=== PATIENT | male | born 1955 | race Two or more races ===

== ENCOUNTER 2018-02-14 03:23 | Inpatient (IN) | payer MEDICAID ==
[~2018-02-14] VITALS: Ht 167.6 cm; Wt 56.7 kg
[~2018-02-14 03:23] MED LIST: ACET-2605 GT; ACET-868 GT; ALBU2.5V38 IH; BACL10TA GT; BISA10SU8 RC; CALC-261 GT; CLON0.1T GT; CRAN3875 GT; DOCU50LI GT; FAMO-131 GT; FERR220S17 GT; FOLI1TAB16 PO; HEPA500014 SUBCUT; IPRA0.2S9 IH; LACT-209 GT; LEVE500T9 GT; MAGN400O21 GT; MULT9LIQ6 GT; NA P133E RC
--- NOTE | 2018-02-14 03:26 | NUR ---
PT TO ER BED 12. BIBRA FROM [facility] FOR HIGH HR AND FEVER X 3 HOURS. SEE VITAL SIGN FLOW SHEET. PT PLACED IN GOWN AND ON SOA ENGINEER. VSS/RESP EVEN UNLABORED/NAD NOTED/SKIN HOT AND DRY/PT IS NONVERBAL. MD AT BEDSIDE FOR EVAL. RT AT BEDSIDE. PT IS ON A TRACH/VENT. VENT SETTINGS: RATE 16 TV 500 FIO2 40%
[2018-02-14] MEDS ORDERED: IV NS 0.9% 1,000 ML BAG IV ONE (03:30)
[2018-02-14] MEDS ORDERED: ACETAMINOPHEN ES 500 MG TABLET GT ONE (03:30)
[2018-02-14 03:33] VITALS: BP 104/59
--- NOTE | 2018-02-14 03:36 | NUR ---
PT RECEIVED FROM FIRE VIA AMBU BAG AND PLACED ON VENT VIA TRACH PORTEX 7 PER PREVIOUS SETTINGS FROM FACILITY. AC 16 500 40% +0. AMBU BAG AT BEDSIDE ALARMS SET AND AUDIBLE. DISCONNECT ALARMS CHECKED.VENT PLUGGED INTO RED OUTLET. PT HAS INCREASED HR AT THIS TIME Addendum: 02/14/18 at 0339 by CHRIS SHEARER RT Amended: Links added.
--- NOTE | 2018-02-14 03:40 | NUR ---
18G IV X 1 ATTEMPT TO R HAND USING ASEPTIC TECH, BLOOD CULT X 2 AND BLOOD HANDED OVER TO THE LAB AT THE BEDSIDE. IV FLUSHES EASILY WITH NS, NO S/S INFILTRATION.
[2018-02-14] MEDS ORDERED: ASPI-1169 GT (03:41)
[2018-02-14] MEDS ORDERED: MAG30ORA GT (03:41)
[2018-02-14] MEDS ORDERED: SACC250C GT (03:41)
[2018-02-14] MEDS ORDERED: METO25TA6 GT (03:41)
--- NOTE | 2018-02-14 03:45 | NUR ---
EMT AT BEDSIDE FOR EKG.
--- NOTE | 2018-02-14 03:47 | NUR ---
RT AT BEDSIDE FOR SUCTION.
--- NOTE | 2018-02-14 03:55 | NUR ---
XRAY AT BEDSIDE.
--- NOTE | 2018-02-14 04:00 | NUR ---
16FR F/C INSERTED USING SITE SUPERVISOR, NOTED 100 ML URINE OUTPUT. URINE SPECIMEN OBTAINED AND SENT TO THE LAB.
[2018-02-14] MEDS ORDERED: ACETAMINOPHEN 650 MG/SUPP.RECT RC ONE ×2 (04:06→04:30)
[2018-02-14 04:15] LABS: EOSINOPHILS % (AUTO) 13.7 % (0.0-6.0); HEMATOCRIT 41 % (39-51); HEMOGLOBIN 13.8 g/dL (13.5-17.5); LYMPHOCYTES # (AUTO) 0.5 /CMM (0.8-4.8); LYMPHOCYTES % (AUTO) 3.7 % (20.0-44.0); MEAN CORPUSCULAR HGB CONC 34 g/dl (31.0-36.0); MEAN CORPUSCULAR VOLUME 98 fL (80-96); MONOCYTES # (AUTO) 0.1 /CMM (0.1-1.30); MONOCYTES % (AUTO) 0.5 % (2.0-12.0); NEUTROPHILS # (AUTO) 11.5 /CMM (1.8-8.9); NEUTROPHILS % (AUTO) 82.1 % (43.0-81.0); PLATELET COUNT (AUTO) 187 /CMM (150-450); RDW COEFFICIENT OF VARIATION 14.2 (11.5-15.0); RED BLOOD CELL COUNT(AUTO) 4.15 MIL/uL (4.5-6.0); WHITE BLOOD COUNT (AUTO) 13.9 K/uL (4.3-11.0)
[2018-02-14 04:26] LABS: CALCIUM, SERUM 8.4 mg/dL (8.5-10.1); CARBON DIOXIDE 29 mmol/L (21-32); CHLORIDE 104 mmol/L (98-107); CREATININE 0.8 mg/dL (0.6-1.3); GLUCOSE 92 mg/dL (74-106); POTASSIUM 3.7 mmol/L (3.5-5.1); SODIUM SERUM 142 mmol/L (136-145); UREA NITROGEN, BLOOD 23 mg/dL (7-18)
[2018-02-14 04:31] LABS: ALANINE AMINOTRANSFERASE 57 U/L (12-78); ALBUMIN 2.9 g/dL (3.4-5.0); ALKALINE PHOSPHATASE 174 U/L (46-116); ASPARTATE AMINOTRANSFERASE 43 U/L (15-37); BILIRUBIN,DIRECT 0.2 mg/dL (0.0-0.2); BILIRUBIN,TOTAL 0.6 mg/dL (0.2-1.0); TOTAL PROTEIN, SERUM 8.3 g/dL (6.4-8.2)
[2018-02-14 04:38] LABS: TROPONIN I < 0.017 ng/mL (0.00-0.056)
[2018-02-14 04:45] LABS: INR 1.1 (0.87-1.13)
[2018-02-14 04:50] LABS: APPEARANCE,URINE CLEAR (CLEAR); BILIRUBIN,URINE NEGATIVE (NEGATIVE); BLOOD, URINE 1+ Ery/uL (NEGATIVE); COLOR,URINE YELLOW (YELLOW); KETONES,URINE NEGATIVE (NEGATIVE); LEUKOCYTE ESTERASE ,URINE TRACE (NEGATIVE); NITRITE, URINE NEGATIVE (NEGATIVE); PROTEIN,URINE TRACE mg/dl (NEGATIVE); UGLUCOSE NEGATIVE (NEGATIVE); UROBILINOGEN,URINE 0.2 EU/dL (0.2)
[2018-02-14 04:54] LABS: PH,URINE >8.5 (5.0-8.0)
[2018-02-14 05:06] LABS: BACTERIA,URINE Rare /HPF (None Seen); SQUAMOUS EPITHELIAL CELL,UR Rare /HPF (None Seen)
--- NOTE | 2018-02-14 05:10 | NUR ---
REPORT CALLED TO TOMMY SHELDON IN [place] FOR JOON.
[2018-02-14] MEDS ORDERED: LEVOFLOXACIN 750 MG /D5W 150ML 750 MG in PREMIX 1 EA IV STA (05:11)
[2018-02-14] MEDS ORDERED: AZTREONAM 1 G in IV NS 0.9% 100 ML IV STA (05:13)
[2018-02-14] MEDS ORDERED: PIPERACILLIN /TAZOBACTAM 3.375 G in IV D5W 50 ML IV STA (05:19)
[2018-02-14] MEDS ORDERED: PIPERACILLIN /TAZOBACTAM 3.375 G VIAL IV ONE (05:19)
--- NOTE | 2018-02-14 05:25 | NUR ---
RT CALLED FOR TRANSPORT.
[2018-02-14] MEDS ORDERED: AZTREONAM 1 G VIAL IM SCH (05:30)
[2018-02-14] MEDS ORDERED: Z GUARD REMEDY 2 OZ OINT TP PRN (05:30)
[2018-02-14] MEDS ORDERED: MAGNESIUM HYDROXIDE 30 ML UDC GT PRN (05:30)
[2018-02-14] MEDS ORDERED: ONDANSETRON HCL/PF 4 MG/2 ML VIAL IVP PRN (05:30)
[2018-02-14] MEDS ORDERED: MORPHINE SULFATE INJ 2 MG/ML DISP.SYRIN IV PRN (05:30)
[2018-02-14] MEDS ORDERED: LORAZEPAM 1 MG TABLET GT PRN (05:30)
[2018-02-14] MEDS ORDERED: HYDROCODONE/APAP 5/325MG 1 EACH TABLET GT PRN (05:30)
[2018-02-14] MEDS ORDERED: MAG HYDROX/AL HYDROX/SIMETH 30 ML UDC GT PRN (05:30)
--- NOTE | 2018-02-14 05:30 | NUR ---
PT TRANSPORTED TO TELE 119 VIA STRETCHER ON ROTARY SAW OPERATOR WITH RN AND RT PER ACLS PROTOCOL. VSS.
[2018-02-14 05:32] VITALS: BP 119/78
[2018-02-14] MEDS: PIPERACILLIN /TAZOBACTAM 3.375 G in IV D5W 50 ML IV SCH ×3 (05:47→17:18)
[2018-02-14] MEDS ORDERED: VANCOMYCIN 1 GM in IV NS 0.9% 250 ML IV ONE (06:00)
[2018-02-14] MEDS: IV NS 0.9% 1,000 ML IV PRN (06:32)
[2018-02-14] MEDS ORDERED: VANCOMYCIN 1 GM VIAL ONE (06:34)
--- NOTE | 2018-02-14 07:50 | NUR ---
RN NOTE RECEIVED PATIENT ASLEEP IN BED, OBTUNDED TRACH INTACT WITH VENTILATOR WITH APPROPRIATE SETTINGS WELL TOLERATED WITH NO DISTRESS AND SATURATING WELL. ON CARDIAC MONITORING OF SINUS TACHY HR OF 105. HUNT CATH INTACT AND PATENT. GT SITE INTACT AND PATENT. RIGHT HAND IV SITE INTACT AND PATENT. BED IN LOW AND LOCKED POSITION. PLACED CALL LIGHT WITHIN REACH. WILL MONITOR CLOSELY.
[2018-02-14 08:00] VITALS: BP 110/70
[2018-02-14] MEDS: ENOXAPARIN SODIUM 40 MG/0.4 ML DISP.SYRIN SQ SCH (09:00)
[2018-02-14] MEDS ORDERED: FEE PK DOSING 1 MIN EA MC ONE (09:18)
[2018-02-14] MEDS: FIBERSOURCE HN 1,000 ML BOTTLE GT PRN (11:15)
[2018-02-14 12:00] VITALS: BP 133/68
[2018-02-14] MEDS: VANCOMYCIN 0.75 GM in IV D5W 250 ML IV SCH ×2 (13:11→23:31)
--- NOTE | 2018-02-14 14:44 | NUR ---
RT RECD PT ON VENT ALARMS ON AND AUDIBLE VENT PLUGGED IN RED OUTLET. AMBU BAG AT BEDSIDE TRACH INTACT AND SECURED. SX THICK YELLOW LARGE SECRETIONS
[2018-02-14 16:00] VITALS: BP 111/63
[2018-02-14] MEDS: LEVOFLOXACIN 500 MG /D5W 100ML 500 MG in PREMIX 1 EA IV SCH (18:09)
--- NOTE | 2018-02-14 19:14 | NUR ---
RN NOTE PATIENT REMAINED STABLE ASLEEP IN BED, OBTUNDED AND CONTRACTED. TRACH INTACT WITH VENTILATOR WITH APPROPRIATE SETTINGS WELL TOLERATED WITH NO DISTRESS AND SATURATING WELL. ON CARDIAC MONITORING OF SINUS TACHY HR OF 110 . HUNT CATH INTACT AND PATENT. GT SITE INTACT AND PATENT, WITH FEEDING OF FIBERSOURCE 60ML/HR WELL TOLERATED. RIGHT HAND IV SITE INTACT AND PATENT. BED IN LOW AND LOCKED POSITION. PLACED CALL LIGHT WITHIN REACH. WILL ENDORSE TO NEXT SHIFT TO CONTINUE CONTINUITY OF CARE.
[2018-02-14 20:00] VITALS: BP 117/59
[2018-02-15] VITALS (7 sets, daily range): BP systolic 115–128; BP diastolic 61–73
[2018-02-15] MEDS: PIPERACILLIN /TAZOBACTAM 3.375 G in IV D5W 50 ML IV SCH ×5 (00:41→23:53)
[2018-02-15] MEDS: ACETAMINOPHEN 325 MG TABLET PO PRN (00:41)
[2018-02-15] MEDS: VANCOMYCIN 0.75 GM in IV D5W 250 ML IV SCH ×2 (06:00→17:41)
[2018-02-15 06:29] LABS: BASOPHILS % (AUTO) 0.3 % (0.0-2.0); HEMATOCRIT 36 % (39-51); HEMOGLOBIN 12.1 g/dL (13.5-17.5); LYMPHOCYTES # (AUTO) 1.2 /CMM (0.8-4.8); LYMPHOCYTES % (AUTO) 7.4 % (20.0-44.0); MEAN CORPUSCULAR HGB CONC 34 g/dl (31.0-36.0); MEAN CORPUSCULAR VOLUME 100 fL (80-96); MONOCYTES # (AUTO) 0.9 /CMM (0.1-1.30); MONOCYTES % (AUTO) 5.7 % (2.0-12.0); NEUTROPHILS # (AUTO) 8.5 /CMM (1.8-8.9); NEUTROPHILS % (AUTO) 52.6 % (43.0-81.0); PLATELET COUNT (AUTO) 150 /CMM (150-450); RDW COEFFICIENT OF VARIATION 14.2 (11.5-15.0); RED BLOOD CELL COUNT(AUTO) 3.58 MIL/uL (4.5-6.0); WHITE BLOOD COUNT (AUTO) 16.1 K/uL (4.3-11.0)
[2018-02-15 06:44] LABS: CALCIUM, SERUM 7.8 mg/dL (8.5-10.1); CREATININE 0.8 mg/dL (0.6-1.3); MAGNESIUM 2.1 mg/dL (1.8-2.4); POTASSIUM 3.8 mmol/L (3.5-5.1)
[2018-02-15 07:08] LABS: EOSINOPHILS % (MANUAL) 40 % (0-4); LYMPHOCYTES % (MANUAL) 5 % (16-48); MONOCYTES % (MANUAL) 4 % (0-11.0); NEUTROPHILS % (MANUAL) 51 (42-76)
--- NOTE | 2018-02-15 07:20 | NUR ---
FHA UNDERWRITER OPENING NOTES RECEIVED PATIENT STABLE ASLEEP IN BED, OBTUNDED AND CONTRACTED. TRACH INTACT WITH VENTILATOR WITH APPROPRIATE SETTINGS WELL TOLERATED WITH NO DISTRESS AND SATURATING WELL. ON TELE MONIOTR SR 84. HUNT CATH INTACT AND PATENT. GT SITE INTACT AND PATENT, WITH FEEDING OF FIBERSOURCE 60ML/HR WELL TOLERATED. RIGHT HAND IV SITE INTACT AND PATENT. BED IN LOW AND LOCKED POSITION. SIDERAILS UP. PLACED CALL LIGHT WITHIN REACH. WILL CONTINUE TO MONITOR ACCORDINGLY
--- NOTE | 2018-02-15 08:45 | NUR ---
WOUND CARE CONSULT: PT PRESENTS WITH SKIN CONDITION WITH PROFUSE SHEDDING OF SKIN, ESPECIALLY ON EXTREMITIES. DEFER TO MD/JUVENTINO FOR SKIN CONDITION. PT IS VERY RIGID AND IMMOBILE WITH CURRENT [place] SCORE OF 10. PT ON ALICIA ISOFLEX LOW AIRLOSS BED. ALL SKIN PROTECTION MEASURES IN PLACE AND DISCUSSED WITH NURSING STAFF. WILL SEE PRN. JACINTO IN AGREEMENT WITH PLAN OF CARE. Addendum: 02/15/18 at 0848 by OLEKSANDR LEAVITT WNDNU Amended: Links added.
[2018-02-15] MEDS: ENOXAPARIN SODIUM 40 MG/0.4 ML DISP.SYRIN SQ SCH (09:22)
--- NOTE | 2018-02-15 13:20 | NUR ---
CALLED PENG,PHARMACY REGARDING PATIENT'S VANCO TROUGH OF 20. PER PENG, IT'S OKAY TO GIVE IT.
[2018-02-15] MEDS ORDERED: NEUTRA PHOS 1 POWD.PACKET GT ONE (13:30)
[2018-02-15] MEDS: LACTOBACILLUS RHAMNOSUS GG 1 EACH CAP.SPRINK PO SCH (17:03)
[2018-02-15] MEDS: IV NS 0.9% 1,000 ML IV PRN (18:13)
[2018-02-15] MEDS: FIBERSOURCE HN 1,000 ML BOTTLE GT PRN (18:16)
--- NOTE | 2018-02-15 18:41 | NUR ---
RT SHIFT REPORT: PT 62 Y OLD MALE REMAIN TRACHED PORTEX # 7 ON VENT WITH NOTED SETTINGS. NO RESP DISTRESS. TOLERATING VENT AC SETTINGS, ALARMS ARE SET AND FUNCTIONAL SX'D FOR MOD AMT OF THICK PALE SECRETIONS. B/S RALES/RHONCHI BILATERALLY VENT ALARMS SET AND AUDIBLE. AMBU BAG AT BEDSIDE. VENT PLUGGED INTO RED OUTLET. WILL CONTINUE TO MONITOR. HME CHANGED AND REPORT WILL PASS TO PM SHIFT. Addendum: 02/15/18 at 1842 by DIAMOND BAUTISTA RT Amended: Links added.
[2018-02-15] MEDS: LEVOFLOXACIN 500 MG /D5W 100ML 500 MG in PREMIX 1 EA IV SCH (18:42)
--- NOTE | 2018-02-15 19:15 | NUR ---
RN CLOSING NOTES PATIENT IN BED RESTING. NO SIGNIFICANT CHANGE IN PATIENT'S CONDITION. NO ACUTE DISTRESS, NO SOB. NO S/S OF PAIN OR DISCOMFORT. SUCTIONED PATIENT NEEDED. TURNED AND REPOSITIONED EVERY 2 HRS NEEDED. KEPT PATIENT CLEAN AND DRY. BED IN LOW/LOCKED POSITION, HOB ELEVATED, SIDERAILS UP, CALL LIGHT IN REACH. ENDORSED TO NIGHT RN FOR JOON.
--- NOTE | 2018-02-15 19:31 | NUR ---
CUSTOMER TRAINER OPENING NOTES RECEIVED REPORT FROM MAKAYLA SANDERS. PATIENT OBTUNDED, RESPONSIVE TO TACTILE STIMULI. BREATHING EVEN & UNLABORED W/ TRACH INTACT & TOLERATING VENT SETTINGS AC 16, TV 500, FIO2 40%, PEEP 0. ON TELE W/ SINUS RHYTHM, HR 87. SKIN WARM, DRY & INTACT W/ GENERALIZED RASH NOTED. G-TUBE INTACT & FLUSHING WELL W/ GTF FIBERSOURCE @ 60 ML/HR. LEFT FOREARM IV #22 INTACT & PATENT W/ DRESSING CDI & IVF NS @ 100 ML/HR. SAFETY MEASURES IN PLACE W/ SIDE RAILS UP & BED LOCKED & IN LOWEST POSITION. WILL CONTINUE TO MONITOR. Addendum: 02/15/18 at 1940 by SANDEEP BOJORQUEZ RN CONTACT & DROPLET PRECAUTIONS MAINTAINED.
[2018-02-16] VITALS (7 sets, daily range): BP systolic 106–138; BP diastolic 40–85
--- NOTE | 2018-02-16 05:12 | NUR ---
PT RECEIVED INTUBATED ON VENT. NO RESP DISTRESS. PT TOLERATING VENT SETTINGS. SX'D FOR MOD AMT OF THICK YELLOW SECRETIONS. VENT ALARMS SET AND AUDIBLE. AMBU BAG AT BEDSIDE. WILL CONTINUE TO MONITOR. Addendum: 02/16/18 at 0512 by BRANDIE GALINDO RT Amended: Links added.
[2018-02-16] MEDS: VANCOMYCIN 0.75 GM in IV D5W 250 ML IV SCH ×2 (05:25→18:06)
[2018-02-16 06:41] LABS: CALCIUM, SERUM 7.7 mg/dL (8.5-10.1); PHOSPHORUS 2.7 mg/dL (2.5-4.9); POTASSIUM 3.5 mmol/L (3.5-5.1)
[2018-02-16] MEDS: PIPERACILLIN /TAZOBACTAM 3.375 G in IV D5W 50 ML IV SCH ×4 (06:50→23:37)
--- NOTE | 2018-02-16 07:20 | NUR ---
SURGICAL APPLIANCES SALESPERSON INITIAL NOTE PATIENT RECEIVED OBTUNDED LYING IN BED, OBTUNDED, TRACH TO MECHANICAL VENT ON SETTINGS ORDERED, SR 60 ON TELE, HUNT CATHETER DRAINING YELLOW/ BERTA URINE. g TUBE FLUSHING WELL, FIBERSOURCE AT 60ML/HR. LFA #22G AT 100 ML/HR. SAFETY MAINTAINED AT ALL TIMES, BED IN LOW LOCKED POSITION, CALL LIGHT WITHIN REACH, WILL CONTINUE TO MONITOR FOR ANY JOON.
[2018-02-16] MEDS: LACTOBACILLUS RHAMNOSUS GG 1 EACH CAP.SPRINK PO SCH ×2 (09:07→17:17)
[2018-02-16] MEDS: ENOXAPARIN SODIUM 40 MG/0.4 ML DISP.SYRIN SQ SCH (09:26)
[2018-02-16] MEDS: IV NS 0.9% 1,000 ML IV PRN (11:41)
[2018-02-16] MEDS: ACETAMINOPHEN 325 MG TABLET PO PRN ×2 (11:57→23:37)
[2018-02-16] MEDS: LEVOFLOXACIN 500 MG /D5W 100ML 500 MG in PREMIX 1 EA IV SCH (17:18)
[2018-02-16] MEDS: FIBERSOURCE HN 1,000 ML BOTTLE GT PRN (17:19)
--- NOTE | 2018-02-16 17:53 | NUR ---
RT NOTE PATIENT RECEIVED TRACHED ON MECHANICAL VENTILATION. SUCTION DONE T/O SHIFT. SMALL THICK WHITE/YELLOW SECRETIONS NOTED. TRACH SECURED AND PATENT AT ALL TIMES. CONTINUOUS PULSE OX @ BEDSIDE. VENT PLUGGED INTO RED OUTLET. AMBU BAG @ HOB. ALARMS ON AND AUDIBLE. PATIENT STABLE T/O SHIFT. Addendum: 02/16/18 at 1755 by JAXSON JOVEL RT Amended: Links added.
--- NOTE | 2018-02-16 18:34 | NUR ---
SLIP TENDER CLOSING NOTE PATIENT RESTING COMFORTABLY IN BED, OBTUNDED, TRACH TO MECHANICAL VENT ON SETTINGS ORDERED. GIVEN TYLENOL AT 1157 FOR FEVER 102 NOW CURRENTLY 98.3, AFEBRILE. SAFETY MAINTAINED AT ALL TIMES, WILL ENDORSE TO PM NURSE FOR CONTINUITY OF CARE.
--- NOTE | 2018-02-16 19:30 | NUR ---
SEED LABORATORY TECHNICIAN OPENING NOTES RECEIVED REPORT FROM JOSE SANDERS. PATIENT OBTUNDED, RESPONSIVE TO TACTILE STIMULI. BREATHING EVEN & UNLABORED W/ TRACH INTACT & TOLERATING VENT SETTINGS AC 16, TV 500, FIO2 40%, PEEP 0. NO RESPIRATORY DISTRESS NOTED. ON TELE W/ SINUS RHYTHM, HR 87. SKIN WARM, DRY & INTACT W/ GENERALIZED RASH NOTED. G-TUBE INTACT & FLUSHING WELL W/ GTF FIBERSOURCE @ 60 ML/HR. NO RESIDUAL NOTED @ THIS TIME. LEFT FOREARM IV #22 INTACT & PATENT W/ DRESSING CDI & IVF NS @ 100 ML/HR. NO S/S OF PAIN OR DISCOMFORT @ THIS TIME. SAFETY MEASURES IN PLACE W/ SIDE RAILS UP & BED LOCKED & IN LOWEST POSITION. WILL CONTINUE TO MONITOR.
[2018-02-17] VITALS: BP 122/63
[2018-02-17 04:00] VITALS: BP 102/51
[2018-02-17] MEDS: IV NS 0.9% 1,000 ML IV PRN (04:29)
[2018-02-17] MEDS: PIPERACILLIN /TAZOBACTAM 3.375 G in IV D5W 50 ML IV SCH ×2 (05:20→11:43)
[2018-02-17] MEDS: VANCOMYCIN 0.75 GM in IV D5W 250 ML IV SCH (06:18)
--- NOTE | 2018-02-17 06:24 | NUR ---
RT PT ON MECH VENT TRACHED INTACT AND SECURED. AMBU BAG AT HOB ALARMS ON AND AUDIBLE PLUGGED IN RED OUTLET SX THICK YELLOW LARGE SECRETIONS . HME CHANGED
[2018-02-17 06:51] LABS: CALCIUM, SERUM 7.8 mg/dL (8.5-10.1); CREATININE 0.9 mg/dL (0.6-1.3); POTASSIUM 3.2 mmol/L (3.5-5.1)
--- NOTE | 2018-02-17 07:19 | NUR ---
YARD SPOTTER NOTES RECEIVED PT ON BED OBTUNDED. ON [facility] VENT SETTING SATURATING WELL. GTUBE FEEDING FIBERSOURCE @60CC/HR TOLERATING WELL. IV ACCESS LFA #22 NS @100CC/HR RUNNING AND PATENT. HEAD OF BED ELEVATED. SIDE RAILS UP. CALL LIGHT WITHIN REACH. BED ALARM ON. WILL CONTINUE TO MONITOR PT CLOSELY.
[2018-02-17 08:00] VITALS: BP 116/77
[2018-02-17] MEDS: LACTOBACILLUS RHAMNOSUS GG 1 EACH CAP.SPRINK PO SCH ×2 (08:55→17:07)
[2018-02-17] MEDS: ENOXAPARIN SODIUM 40 MG/0.4 ML DISP.SYRIN SQ SCH (08:59)
[2018-02-17] MEDS: POTASSIUM CHLORIDE 20 MEQ POWDER PACKET GT SCH ×2 (11:43→12:40)
[2018-02-17 12:00] VITALS: BP 147/85
[2018-02-17] MEDS: FIBERSOURCE HN 1,000 ML BOTTLE GT PRN (12:41)
[2018-02-17] MEDS: CEFAZOLIN 2 GM in IV NS 0.9% 50 ML IV SCH ×2 (13:43→22:18)
[2018-02-17 16:00] VITALS: BP 136/74
--- NOTE | 2018-02-17 18:35 | NUR ---
TELECOMMUNICATIONS ADMINISTRATOR NOTES NO ACUTE CHANGES NOTED DURING THE SHIFT. WILL ENDORSE TO THE PM NURSE FOR JOON
--- NOTE | 2018-02-17 19:30 | NUR ---
WIRELESS COMMUNICATIONS ENGINEER OPENING NOTES RECEIVED REPORT FROM JIMMY SANDERS. PATIENT OBTUNDED, RESPONSIVE TO TACTILE STIMULI. BREATHING EVEN & UNLABORED W/ TRACH INTACT & TOLERATING VENT SETTINGS AC 16, TV 500, FIO2 40%, PEEP 0. NO RESPIRATORY DISTRESS NOTED. ON TELE W/ SINUS RHYTHM, HR 71. SKIN WARM, DRY & INTACT W/ GENERALIZED RASH NOTED. G-TUBE INTACT & FLUSHING WELL W/ GTF FIBERSOURCE @ 60 ML/HR. NO RESIDUAL NOTED @ THIS TIME. LEFT FOREARM IV #22 INTACT & PATENT W/ DRESSING CDI & IVF NS @ 100 ML/HR. NO S/S OF PAIN OR DISCOMFORT @ THIS TIME. SAFETY MEASURES IN PLACE W/ SIDE RAILS UP, BED LOCKED & IN LOWEST POSITION & BED ALARM ON. WILL CONTINUE TO MONITOR.
[2018-02-17 20:00] VITALS: BP 149/89
[2018-02-18] VITALS: BP 139/82
[2018-02-18 04:00] VITALS: BP 135/71
[2018-02-18] MEDS: CEFAZOLIN 2 GM in IV NS 0.9% 50 ML IV SCH ×3 (04:22→20:15)
[2018-02-18 06:25] LABS: BASOPHILS # (AUTO) 0.1 /CMM (0.0-0.2); BASOPHILS % (AUTO) 0.4 % (0.0-2.0); HEMATOCRIT 35 % (39-51); HEMOGLOBIN 11.8 g/dL (13.5-17.5); LYMPHOCYTES # (AUTO) 1.9 /CMM (0.8-4.8); LYMPHOCYTES % (AUTO) 12.7 % (20.0-44.0); MEAN CORPUSCULAR HGB CONC 34 g/dl (31.0-36.0); MEAN CORPUSCULAR VOLUME 99 fL (80-96); MONOCYTES # (AUTO) 1.1 /CMM (0.1-1.30); MONOCYTES % (AUTO) 7.3 % (2.0-12.0); NEUTROPHILS # (AUTO) 5.5 /CMM (1.8-8.9); NEUTROPHILS % (AUTO) 35.8 % (43.0-81.0); PLATELET COUNT (AUTO) 183 /CMM (150-450); RDW COEFFICIENT OF VARIATION 14.2 (11.5-15.0); RED BLOOD CELL COUNT(AUTO) 3.51 MIL/uL (4.5-6.0); WHITE BLOOD COUNT (AUTO) 15.3 K/uL (4.3-11.0)
[2018-02-18 06:41] LABS: CREATININE 0.9 mg/dL (0.6-1.3); MAGNESIUM 2.2 mg/dL (1.8-2.4); PHOSPHORUS 2.4 mg/dL (2.5-4.9); POTASSIUM 3.2 mmol/L (3.5-5.1)
--- NOTE | 2018-02-18 07:30 | NUR ---
PHARMACY CASHIER INITIAL NOTE PATIENT RECEIVED OBTUNDED LYING IN BED, TRACH TO MECHANICAL VENT ON SETTINGS ORDERED, SR 70S ON TELE, HUNT CATHETER DRAINING YELLOW URINE. G TUBE FLUSHING WELL, FIBERSOURCE AT 60ML/HR. SHERMAN #22G 0.9% NS AT 100 ML/HR. SAFETY MAINTAINED AT ALL TIMES, BED IN LOW LOCKED POSITION, CALL LIGHT WITHIN REACH, WILL CONTINUE TO MONITOR FOR ANY JOON.
[2018-02-18 07:45] LABS: EOSINOPHILS % (AUTO) 43.8 % (0.0-6.0)
[2018-02-18 08:00] VITALS: BP 125/65
[2018-02-18] MEDS: LACTOBACILLUS RHAMNOSUS GG 1 EACH CAP.SPRINK PO SCH ×2 (08:29→17:45)
[2018-02-18] MEDS: ENOXAPARIN SODIUM 40 MG/0.4 ML DISP.SYRIN SQ SCH (08:30)
[2018-02-18 10:09] LABS: BAND % (MANUAL) 1 % (0.0-5.0); EOSINOPHILS % (MANUAL) 48 % (0-4); LYMPHOCYTES % (MANUAL) 12 % (16-48); MONOCYTES % (MANUAL) 6 % (0-11.0); NEUTROPHILS % (MANUAL) 33 (42-76)
[2018-02-18] MEDS: IV NS 0.9% 1,000 ML IV PRN (11:21)
[2018-02-18] MEDS: FIBERSOURCE HN 1,000 ML BOTTLE GT PRN (11:21)
[2018-02-18 12:00] VITALS: BP_SYST 105; BP_DIAS 55; BP_DIAS 58
[2018-02-18] MEDS ORDERED: NEUTRA PHOS 1 POWD.PACKET NG ONE (12:30)
[2018-02-18] MEDS: POTASSIUM CHLORIDE 20 MEQ POWDER PACKET GT SCH ×2 (12:50→13:15)
[2018-02-18 16:00] VITALS: BP 113/61
[2018-02-18 20:00] VITALS: BP 156/83
--- NOTE | 2018-02-18 20:00 | NUR ---
PARIMUTUEL TICKET CASHIER NOTES RECEIVED PTS IN BED OBTUNDED , REMAINS ON VENTILATOR AC SETTING WELL TOLERATED , ON MONITOR SR SATING 100 % NO SOB NO DISTRESS NOTED , HOB ELEVATED FOR ASPIRATION PRECAUTION , SUCTION SECRETION DONE Q 2 HRS AND PRN, WITH ABOVE IVF OF NS AT 100CC/HR INFUSING WELL IV HEPLOCK ON R UPPER ARM G#22 INTACT AND PATENT , GT FEEDING WELL TOLERATED, NO RESIDUAL NOTED.V/S STABLE AFEBRILE , F/C INTACT AND PATENT DRAINING WITH YELLOWISH URINE OUTPUT ALL DUE MEDS GIVEN ORDERED, ALL NEEDS ATTENDED TOO CALL LIGHT WITHIN REACH , KEPT PTS CLEAN DRY AND COMFORTABLE.WILL CONTINUE TO MONITOR.
[2018-02-19] VITALS: BP 150/70
[2018-02-19] MEDS: IV NS 0.9% 1,000 ML IV PRN (00:49)
[2018-02-19 04:00] VITALS: BP 128/76
[2018-02-19] MEDS: CEFAZOLIN 2 GM in IV NS 0.9% 50 ML IV SCH ×2 (05:57→12:46)
[2018-02-19] MEDS: FIBERSOURCE HN 1,000 ML BOTTLE GT PRN (05:58)
[2018-02-19 06:39] LABS: BASOPHILS % (AUTO) 0.3 % (0.0-2.0); HEMATOCRIT 34 % (39-51); HEMOGLOBIN 11.6 g/dL (13.5-17.5); LYMPHOCYTES # (AUTO) 1.6 /CMM (0.8-4.8); LYMPHOCYTES % (AUTO) 11.6 % (20.0-44.0); MEAN CORPUSCULAR HGB CONC 34 g/dl (31.0-36.0); MEAN CORPUSCULAR VOLUME 99 fL (80-96); MONOCYTES # (AUTO) 0.7 /CMM (0.1-1.30); MONOCYTES % (AUTO) 5.2 % (2.0-12.0); NEUTROPHILS # (AUTO) 4.6 /CMM (1.8-8.9); NEUTROPHILS % (AUTO) 34.1 % (43.0-81.0); PLATELET COUNT (AUTO) 198 /CMM (150-450); RED BLOOD CELL COUNT(AUTO) 3.43 MIL/uL (4.5-6.0); WHITE BLOOD COUNT (AUTO) 13.5 K/uL (4.3-11.0)
[2018-02-19 06:42] LABS: CALCIUM, SERUM 7.9 mg/dL (8.5-10.1); CREATININE 0.8 mg/dL (0.6-1.3)
[2018-02-19 06:53] LABS: POTASSIUM 3.4 mmol/L (3.5-5.1)
[2018-02-19 07:03] LABS: EOSINOPHILS % (AUTO) 48.8 % (0.0-6.0)
--- NOTE | 2018-02-19 07:30 | NUR ---
BOAT RIDE OPERATOR INITIAL NOTE PATIENT RECEIVED OBTUNDED LYING IN BED, TRACH TO MECHANICAL VENT ON SETTINGS ORDERED, SR 72 ON TELE, HUNT CATHETER DRAINING YELLOW URINE. G TUBE FLUSHING WELL, FIBERSOURCE AT 60ML/HR. R WRIST #22G 0.9% NS AT 100 ML/HR. SAFETY MAINTAINED AT ALL TIMES, BED IN LOW LOCKED POSITION, CALL LIGHT WITHIN REACH, WILL CONTINUE TO MONITOR FOR ANY JOON.
[2018-02-19 08:00] VITALS: BP 152/69
[2018-02-19] MEDS: ENOXAPARIN SODIUM 40 MG/0.4 ML DISP.SYRIN SQ SCH (08:01)
[2018-02-19] MEDS: LACTOBACILLUS RHAMNOSUS GG 1 EACH CAP.SPRINK PO SCH ×2 (08:01→17:28)
[2018-02-19 09:08] LABS: BAND % (MANUAL) 1 % (0.0-5.0); EOSINOPHILS % (MANUAL) 51 % (0-4); LYMPHOCYTES % (MANUAL) 10 % (16-48); MONOCYTES % (MANUAL) 3 % (0-11.0); NEUTROPHILS % (MANUAL) 35 (42-76)
[2018-02-19] MEDS ORDERED: POTASSIUM CHLORIDE 20 MEQ POWDER PACKET GT SCH ×2 (10:00→13:00)
[2018-02-19 12:00] VITALS: BP 119/70
[2018-02-19] MEDS ORDERED: CEFA1VIA19 IJ (14:02)
[2018-02-19 16:00] VITALS: BP 142/72
--- NOTE | 2018-02-19 17:50 | NUR ---
PAPETERIE TABLE ASSEMBLER NOTE REPORT GIVEN TO [facility] STAFF FOR D/C PATIENT WILL BE PICKED UP AT 1800 BY EMT
--- NOTE | 2018-02-19 18:37 | NUR ---
DIRECTOR OF BANDS NOTE PATIENT DISCHARGED TO [facility] VIA EMT TRANSPORT, ENDORSED REPORT TO EMT AND [facility] STAFF.
== END 2018-02-19 18:40 | DRG 720 ==
LOC: ER 03:25 → TELE1 05:04
PROVIDERS: ADMIT Nurse Practitioner Acute Care; ATTEND Nurse Practitioner Acute Care
PROC: 5A1955Z Respiratory Ventilation, Greater than 96 Consecutive Hours (ICD-10-PCS; principal; 2018-02-14)
DX: A41.9 Sepsis, unspecified organism (principal); J96.21 Acute and chronic respiratory failure with hypoxia; G93.41 Metabolic encephalopathy; R40.3 Persistent vegetative state; Z99.11 Dependence on respirator [ventilator] status; J18.9 Pneumonia, unspecified organism; G91.9 Hydrocephalus, unspecified; D68.59 Other primary thrombophilia; R53.2 Functional quadriplegia; E44.0 Moderate protein-calorie malnutrition; G40.909 Epilepsy, unspecified, not intractable, without status epilepticus; B96.20 Unspecified Escherichia coli [E. coli] as the cause of diseases classified elsewhere; D50.9 Iron deficiency anemia, unspecified; I10 Essential (primary) hypertension; Z86.73 Personal history of transient ischemic attack (TIA), and cerebral infarction without residual deficits; Z93.1 Gastrostomy status; R13.10 Dysphagia, unspecified; N39.0 Urinary tract infection, site not specified; Z68.20 Body mass index [BMI] 20.0-20.9, adult; Z86.14 Personal history of Methicillin resistant Staphylococcus aureus infection; B95.61 Methicillin susceptible Staphylococcus aureus infection as the cause of diseases classified elsewhere
CPT/HCPCS: 31720; 36415; 71045-TC; 80048-TC; 80076-TC; 80202-TC; 81000-TC; 83605-TC; 83735-TC; 84100-TC; 84484-TC; 85025-TC; 85730-TC; 87040-TC; 87070-TC; 87081-TC; 87086-TC; 87186-TC; 87400; 93307-TC; 94002-TC; 94003-TC; 94640-TC; 94760-TC; 94762-TC; 99082-TC; A4216; A4606; A7526; J0690; J1650; J1956; J2543; J3370; J3490; J7030; J7050; J7060; Z7610

== ENCOUNTER 2021-03-01 11:51 | Inpatient (IN) | payer MEDICAID ==
[~2021-03-01] VITALS: Ht 165.1 cm; Wt 56.7 kg
[~2021-03-01 11:51] MED LIST changes: +ASPI-1169 GT; +CEFA1VIA19 IJ; -CLON0.1T GT; -FAMO-131 GT; -FERR220S17 GT; +FERR220S2 GT; +MAG30ORA GT; +METO25TA6 GT; +SACC250C GT
--- NOTE | 2021-03-01 12:05 | NUR ---
RT NOTE: RECEIVED PATIENT IN ER WITH #7 PORTEX TRACH AND PLACED ON MECHANICAL VENT. SETTINGS PER MD ORDER. VENT ALARMS SET AND AUDIBLE. SUCTIONED MODERATE AMOUNT OF THICK WHITE SECRETIONS. BILATERAL B/S NOTED. AMBU BAG AT [facility].
--- NOTE | 2021-03-01 12:32 | NUR ---
rene, from [facility], sent by PMD for GT placement s/p dislodged last night. On vent and trach, GT site (stoma closed), Dr. Butt at bedside and checked the stoma, unable to put GT syriac 18. Connected to the monitor and pulse ox. Kept comfortable, will continue to monitor accordingly.
[2021-03-01] MEDS ORDERED: CHOL100034 GT (12:36)
[2021-03-01] MEDS ORDERED: QUERCETIN GT (12:36)
[2021-03-01] MEDS ORDERED: NUTR250L50 GT (12:36)
[2021-03-01] MEDS ORDERED: OMEP20TA5 GT (12:36)
[2021-03-01] MEDS ORDERED: ACET325T53 GT (12:36)
[2021-03-01] MEDS ORDERED: LACT10SO3 GT (12:36)
[2021-03-01 12:59] LABS: BASOPHILS # (AUTO) 0.1 /CMM (0.0-0.2); BASOPHILS % (AUTO) 1.3 % (0.0-2.0); HEMATOCRIT 42 % (39-51); HEMOGLOBIN 14.2 g/dL (13.5-17.5); LYMPHOCYTES # (AUTO) 2.7 /CMM (0.8-4.8); LYMPHOCYTES % (AUTO) 28.4 % (20.0-44.0); MEAN CORPUSCULAR HGB CONC 34 g/dl (31.0-36.0); MEAN CORPUSCULAR VOLUME 99 fL (80-96); MONOCYTES # (AUTO) 0.8 /CMM (0.1-1.30); MONOCYTES % (AUTO) 8.2 % (2.0-12.0); NEUTROPHILS % (AUTO) 52.1 % (43.0-81.0); PLATELET COUNT (AUTO) 167 /CMM (150-450); RED BLOOD CELL COUNT(AUTO) 4.26 MIL/uL (4.5-6.0); WHITE BLOOD COUNT (AUTO) 9.6 K/uL (4.3-11.0)
[2021-03-01 13:21] LABS: CALCIUM, SERUM 9.1 mg/dL (8.5-10.1); CREATININE 0.6 mg/dL (0.6-1.3); POTASSIUM 4.4 mmol/L (3.5-5.1)
[2021-03-01 13:27] LABS: BILIRUBIN,DIRECT 0.2 mg/dL (0.0-0.2); BILIRUBIN,TOTAL 0.7 mg/dL (0.2-1.0); TOTAL PROTEIN, SERUM 8.1 g/dL (6.4-8.2)
[2021-03-01 14:25] LABS: BILIRUBIN,URINE NEGATIVE (NEGATIVE); COLOR,URINE YELLOW (YELLOW); LEUKOCYTE ESTERASE ,URINE NEGATIVE (NEGATIVE); NITRITE, URINE NEGATIVE (NEGATIVE); PH,URINE 7.5 (5.0-8.0); PROTEIN,URINE NEGATIVE (NEGATIVE); UGLUCOSE NEGATIVE (NEGATIVE)
[2021-03-01 14:57] LABS: BACTERIA,URINE RARE /HPF (None Seen); MUCUS,URINE Few /LPF (None Seen); RBC,URINE 0-2 /HPF (0-2); SQUAMOUS EPITHELIAL CELL,UR 0-2 /HPF (None Seen); URINE AMORPHOUS PHOSPHATES Few /HPF (None Seen)
--- NOTE | 2021-03-01 16:15 | NUR ---
RN NOTE RECEIVED PATIENT FROM TOMMY WHITLOCK FOR JOON. PATIENT IS STABLE AT TIME OF TRANSFER.
--- NOTE | 2021-03-01 17:14 | NUR ---
GOT BED 114
--- NOTE | 2021-03-01 17:44 | NUR ---
report given to Stefan SANDERS for jevon
--- NOTE | 2021-03-01 18:04 | NUR ---
RT NOTE: TRANSPORTED PATIENT WITH NOT PROBLEM. PLACED PATIENT BACK ON MECHANICAL VENT. ALARMS VERIFIED AND AUDIBLE. PULSE OX MONITOR AT BEDSIDE. AMBU BAG AT [facility].
--- NOTE | 2021-03-01 18:10 | NUR ---
Wheeled patient via gurney accompanied by RN and emt in no distress, RN at bedside to [facility].
--- NOTE | 2021-03-01 19:00 | NUR ---
RECEIVED PT ON BED AWAKE, OBTUNDED NON VERBAL EYES OPEN BUT NOT TRACKING, ON TRACH/VENT SETTING PER MD FIO2 40% SPO2 100%, NO SIGN OF ANY DISTRESS, NO PAIN WAS NOTED, TELE MONITOR READS SINUS RHYTHM 60'S ADMISSION ASSESSMENT WAS DONE, HEAD TO TOE ASSESSMENT DONE, SKIN IS INTACT NOTED, PT IS SHIRLEY CONTRACTED, CURRENTLY ON NPO PER MD ORDER, HAVE LHAND # 22 IV PATENT AND FLUSHED, ON DROPLET ISOALTION R/O COVID, BED ON LOWEST POSITION AND LOCKED SIDE RAILS UP X 2 WILL CONT TO MONITOR
[2021-03-01] MEDS ORDERED: Z GUARD REMEDY 2 OZ OINT TP PRN (19:30)
[2021-03-01] MEDS ORDERED: ZOLPIDEM TARTRATE 5 MG TABLET PO PRN (19:30)
[2021-03-01] MEDS ORDERED: HYDROCODONE/APAP 5/325MG TABLET PO PRN (19:30)
[2021-03-01] MEDS ORDERED: ONDANSETRON HCL/PF 4 MG/2 ML VIAL IVP PRN (19:30)
[2021-03-01 20:00] VITALS: BP 109/45
[2021-03-01] MEDS: IV D5/ 0.9% NACL 1,000 ML IV PRN (20:48)
[2021-03-01] MEDS: ENOXAPARIN SODIUM 40 MG/0.4 ML DISP.SYRIN SQ SCH (21:10)
[2021-03-02] VITALS: BP 113/59
[2021-03-02 04:00] VITALS: BP 112/64
--- NOTE | 2021-03-02 06:54 | NUR ---
PT ON BED SLEEPING STILL OBTUNDED STILL ON VENT SETIING PER MD SPO2 99% NO SIGN AND SYMPTOMS OF ANY DISTRESS NO SIGNIFICANT CHANGES ON CONDITION NOTED ALL NEEDS ATTENDED, TELE MONITOR READS SINUS BRADYCARDIA 50S BED ON LOWEST POSITION AND LOCKED SIDE RAILS UP X2 CALL LIGHT WITHIN REACH WILL ENDORSED TO AM SHIFT NURSE
[2021-03-02 07:07] LABS: BASOPHILS # (AUTO) 0.1 /CMM (0.0-0.2); BASOPHILS % (AUTO) 1.1 % (0.0-2.0); EOSINOPHILS % (AUTO) 11.5 % (0.0-6.0); HEMATOCRIT 39 % (39-51); HEMOGLOBIN 12.9 g/dL (13.5-17.5); LYMPHOCYTES # (AUTO) 2.3 /CMM (0.8-4.8); LYMPHOCYTES % (AUTO) 36.9 % (20.0-44.0); MEAN CORPUSCULAR HGB CONC 34 g/dl (31.0-36.0); MEAN CORPUSCULAR VOLUME 99 fL (80-96); MONOCYTES # (AUTO) 0.7 /CMM (0.1-1.30); NEUTROPHILS # (AUTO) 2.5 /CMM (1.8-8.9); NEUTROPHILS % (AUTO) 39.5 % (43.0-81.0); PLATELET COUNT (AUTO) 158 /CMM (150-450); RED BLOOD CELL COUNT(AUTO) 3.91 MIL/uL (4.5-6.0); WHITE BLOOD COUNT (AUTO) 6.3 K/uL (4.3-11.0)
--- NOTE | 2021-03-02 07:10 | NUR ---
RN OPENING NOTES RECEIVED PT OBTUNDED. ON TRACH/ MECH VENT, TOLERATING SETTINGS WELL. SPO2 @99-100%. NO SOB OR ANY S/SX OF RESPIRATORY DISTRESS. TELE MONITOR READS SB-SR. NPO. IV ACCESS AT L HAND #22 INTACT AND PATENT. D5NS RUNNING @75ML/HR INFUSING WELL. SAFETY MEASURES IN PLACE. CALL LIGHT WITHIN REACH. BED LOCKED AND IN LOWEST POSITION WITH SIDE RAILS UP X2. WILL CONTINUE TO MONITOR.
[2021-03-02 07:59] LABS: CALCIUM, SERUM 8.4 mg/dL (8.5-10.1); CREATININE 0.6 mg/dL (0.6-1.3); MAGNESIUM 2.2 mg/dL (1.8-2.4); PHOSPHORUS 2.6 mg/dL (2.5-4.9); POTASSIUM 3.6 mmol/L (3.5-5.1)
[2021-03-02 08:00] VITALS: BP 124/57
[2021-03-02] MEDS: IV D5/ 0.9% NACL 1,000 ML IV PRN (09:42)
[2021-03-02 12:00] VITALS: BP 138/78
[2021-03-02 16:00] VITALS: BP 116/53
--- NOTE | 2021-03-02 18:44 | NUR ---
RN CLOSING NOTES NO SIGNIFICANT CHANGES THROUGHOUT THE SHIFT. NOT IN DISTRESS. TOLERATING VENT SETTINGS WELL. NPO POST MIDNIGHT. FOR PEG PLACEMENT TOMORROW. SAFETY MEASURES STILL IN PLACE. WILL ENDORSE TO NIGHT RN FOR JOON.
--- NOTE | 2021-03-02 19:20 | NUR ---
RN OPENING NOTES RECEIVED PATIENT IN BED, OBTUNDED, NON VERBAL TRACH TO VENT. ON MECHANICAL VENTILATION SETTINGS AC 16 TV 500 FIO2 40% PEEP 5 ORDERED, PT TOLERATING WELL. O2 SATURATION 100% NO S/S OF RESP DISTRESS OR SOB. BREATHING IS EVEN AND UNLABORED AT THIS TIME. PT IS ON TELE MONITORING, WITH NSR HEART RATE IS 60 AT THIS TIME, IS PT BASELINE IN ADDITION TO SINUS JES HEART RATE IN 50s. PT HAS IV LEFT HAND #22, RUNNING WITH IV FLUIDS D5NS ORDERED AT 75ML/HR. NO S/S OF INFILTRATION NOTED. PT IS NPO EXCEPT MEDS FOR POSSIBLE GTUBE PLACEMENT TOMORROW. SAFETY MEASURES IN PLACE. HOB ELEVATED. SIDE RAILS UP X2. BED IS LOCKED IS LOWEST POSITION WITH BED ALARM ON. PT UNABLE TO USE CALL LIGHT. WILL CONTINUE TO MONITOR FOR CHANGES IN PT CONDITION MAKING FREQUENT ROUNDS, TURN AND REPOSITION Q2H.
[2021-03-02 20:00] VITALS: BP 113/52
[2021-03-02] MEDS: ENOXAPARIN SODIUM 40 MG/0.4 ML DISP.SYRIN SQ SCH (21:18)
--- NOTE | 2021-03-02 21:19 | NUR ---
RN NOTES NON ADMIN OF LOVENOX DUE TO POSSIBLE PEG PLACEMENT TOMORROW, RELAYED INFO TO INTERIOR DESIGN COORDINATOR.
[2021-03-03] VITALS: BP 118/52
--- NOTE | 2021-03-03 02:13 | NUR ---
RN NOTE PT SLEEPING INTERMITTENTLY. NO S/S OF PAIN NOTED, 0 ON FLACC. PT SUCTIONED, THIN MINIMAL SECRETIONS ORALLY AND VIA TRACH. WILL CONTINUE TO MONITOR FOR CHANGE IN CONDITION.
[2021-03-03 04:00] VITALS: BP 109/51
--- NOTE | 2021-03-03 04:15 | NUR ---
RN NOTES BED BATH DONE. PT TOLERATED WELL. NO DISTRESS NOTED DURING OR AFTER HYGIENE/PT CARE. WILL CONT TO MONITOR.
[2021-03-03] MEDS: IV D5/ 0.9% NACL 1,000 ML IV PRN ×2 (04:29→17:28)
--- NOTE | 2021-03-03 06:31 | NUR ---
RN CLOSING NOTES PT REMAINS IN BED, ON SAME VENT SETTINGS NO CHANGE, TOLERATING WELL. PORTEX 7 AC 16 TV 500 FIO2 40% PEEP 5. O2 SATURATION REMAINED AT 100% THROUGHOUT THE NIGHT. PT ON CARDIAC MONITORING REMAINS WITH SINUS JES WITH HEART RATE OF 48. NO DISTRESS NOTED, NO S/S OF SOB. PT BREATHING EVEN AND UNLABORED. NO S/S OF PAIN NOTED. PT TURNED AND REPOSITIONED Q2H TOLERATED. BED BATH DONE, LINEN CHANGED, ORAL CARE DONE, PT SUCTIONED NEEDED. SAFETY MEASURES IN PLACE. HOB ELEVATED. SIDE RAILS UP X2 BED LOCKED IN LOWEST POSITION WITH BED ALARM ON. WILL ENDORSE TO ONCOMING SHIFT FOR CONTINUATION OF CARE.
--- NOTE | 2021-03-03 07:30 | NUR ---
RN CLOSING NOTES TRACH PT SEMIFOLWERS IN BED, ON VENT SETTINGS P 7, AC 16, TV 500, FIO2 40%, PEEP 5, SPO2 OF 100% WITH NO SIGNS OF SOB OR RESP DISTRESS, BREATHING EVEN AND UNLABORED. PT TELE READING SINUS JES HR CURRENTLY IN THE HIGH 40s WHICH IS CONSISTENT WITH PREVIOUS SHIFT HR, WILL MONITOR. NO S/S OF PAIN NOTED. PT LT HAND #22 INFUSING D5NS @ 75ML/HR, FLUSHED INTACT WITH NO SIGNS OF INFILTRATION/INFECTION. PT TURNED AND REPOSITIONED Q2H TOLERATED. PT CONSENTS NEEDED FOR PEG PLACEMENT PROCEDURE, BLOOD TRANFUSIOM, AND ANESTHESIA, WILL OBTAIN PRIOR TO SCHEDULED PROCEDURE AT NOON. ALL PT SAFETY MEASURES IN PLACE. HOB ELEVATED. SIDE RAILS UP X2 BED LOCKED IN LOWEST POSITION WITH BED ALARM ON. WILL CONT TO MONITOR.
[2021-03-03 08:00] VITALS: BP 123/52
[2021-03-03 10:12] LABS: CALCIUM, SERUM 8.1 mg/dL (8.5-10.1); CREATININE 0.6 mg/dL (0.6-1.3); MAGNESIUM 2.4 mg/dL (1.8-2.4); PHOSPHORUS 2.8 mg/dL (2.5-4.9); POTASSIUM 3.5 mmol/L (3.5-5.1)
[2021-03-03 10:18] LABS: BASOPHILS # (AUTO) 0.1 /CMM (0.0-0.2); EOSINOPHILS % (AUTO) 13.6 % (0.0-6.0); HEMATOCRIT 40 % (39-51); HEMOGLOBIN 13.4 g/dL (13.5-17.5); LYMPHOCYTES # (AUTO) 2.2 /CMM (0.8-4.8); LYMPHOCYTES % (AUTO) 32.3 % (20.0-44.0); MEAN CORPUSCULAR HGB CONC 33 g/dl (31.0-36.0); MEAN CORPUSCULAR VOLUME 101 fL (80-96); MONOCYTES # (AUTO) 0.8 /CMM (0.1-1.30); MONOCYTES % (AUTO) 11.5 % (2.0-12.0); NEUTROPHILS # (AUTO) 2.9 /CMM (1.8-8.9); NEUTROPHILS % (AUTO) 41.6 % (43.0-81.0); PLATELET COUNT (AUTO) 149 /CMM (150-450); WHITE BLOOD COUNT (AUTO) 6.9 K/uL (4.3-11.0)
--- NOTE | 2021-03-03 11:00 | NUR ---
RN NOTE PT UNABLE TO SIGN D/T INCAPACITATION/OBTUNDED AND HAS NO FAMILY PER [facility] AND OUR DOCUMENTS. KAMRON OBREGON NP, SIGNED FOR PT CONSENT FOR ESOPHAGOGASTRODUODENOSCOPY WITH POSSIBLE BIOPSY, CAUTERIZATION, PHOTOGRAPHY AND CYTOLOGY. PERCUTANEOUS ENDOSCOPIC GASTROSTOMY TUBE INSERTION, WELL BLOOD TRANSFUSION AND ANESTHESIA CONSENTS; I MYSELF WITNESSED AND CO-SIGNED ALL 3 CONSENTS SIGNED BY SOMMER LUNDY. KAMRON WAS ALSO INSTRUCTED TO DOCUMENT ALL OF THIS IN [employer]
[2021-03-03] MEDS ORDERED: ANESTHESIA TRAY IN PYXIS 1 EA TRAY MC ONE (11:23)
[2021-03-03] MEDS ORDERED: MIDAZOLAM HCL 2 MG/2ML VIAL ONE (11:52)
[2021-03-03 12:00] VITALS: BP 120/51
--- NOTE | 2021-03-03 13:29 | NUR ---
RN NOTE PT TOLERATED PEG PLACEMENT WELL. VITALS: BP 127/73, HR 58, RR 16, SPO2 100%, TEMP 98.5. PER DR IVEY, PT TO RESUME PREVIOUS MED REGIMEN, USE PEG TUBE FOR WATER AND MEDS @ 1700 (4HRS POST PROCEDURE), AND USE PEG TUBE FOR FEEDING STARTING TOMORROW 03/04 IN THE MORNING
[2021-03-03 16:00] VITALS: BP 139/69
[2021-03-03] MEDS: METOPROLOL TARTRATE 25 MG TABLET GT SCH (17:27)
--- NOTE | 2021-03-03 18:00 | NUR ---
RN NOTES PT PEG TUBE AUSCULTATED FOR POSITIVE PLACEMENT AND MINIMAL GASTRIC JUICES WITHDRAWN, FLUSHED AND IS PATENT. PT MEDS GIVEN VIA PEG TUBE
--- NOTE | 2021-03-03 18:54 | NUR ---
RN CLOSING NOTE PT PEG TUBE PLACED WITH NO COMPLICATIONS, PEG TUBE OKAY TO USE FOR MEDS AND WATER FLUSHES. PEG TUBE FEED CONSULT SCHEDULED FOR TOMORROW 03/04 TO INITIATE TUBE FEEDING. PT SINUS JES 40s-50s MOST OF SHIFT. PT ON SAME VENT SETTINGS SPO2 OF 100% ENTIRE SHIFT WITH NO S/S OF SOB OR RESP DISTRESS. ALL PT SAFETY MEASURES IN PLACE, WILL ENDORSE JOON TO ONCOMING RN
--- NOTE | 2021-03-03 19:10 | NUR ---
RN OPENING NOTES: Rec'd pt in bed, obtunded but opens eyes. On trach and mechanical ventilation, tolerating settings well. SB on tele monitor. Left hand #22 patent and flushed w/ D5NS infusing at 75ml/hr. Safety measures in place. Will continue to monitor.
[2021-03-03 20:00] VITALS: BP 124/60
[2021-03-03] MEDS: DOCUSATE SODIUM LIQ 100 MG/10 ML UDC GT SCH (21:11)
[2021-03-03] MEDS: LEVETIRACETAM SOL (5 ML) 100 MG/ML UDC GT SCH (21:11)
[2021-03-03] MEDS: ENOXAPARIN SODIUM 40 MG/0.4 ML DISP.SYRIN SQ SCH (21:14)
[2021-03-04] VITALS: BP 99/55
[2021-03-04 04:00] VITALS: BP 105/44
[2021-03-04 06:23] LABS: BASOPHILS # (AUTO) 0.1 /CMM (0.0-0.2); BASOPHILS % (AUTO) 0.8 % (0.0-2.0); EOSINOPHILS % (AUTO) 10.1 % (0.0-6.0); HEMATOCRIT 35 % (39-51); HEMOGLOBIN 11.8 g/dL (13.5-17.5); LYMPHOCYTES # (AUTO) 2.3 /CMM (0.8-4.8); LYMPHOCYTES % (AUTO) 29.2 % (20.0-44.0); MEAN CORPUSCULAR HGB CONC 34 g/dl (31.0-36.0); MEAN CORPUSCULAR VOLUME 100 fL (80-96); MONOCYTES # (AUTO) 0.8 /CMM (0.1-1.30); NEUTROPHILS # (AUTO) 3.9 /CMM (1.8-8.9); NEUTROPHILS % (AUTO) 49.9 % (43.0-81.0); PLATELET COUNT (AUTO) 134 /CMM (150-450); RED BLOOD CELL COUNT(AUTO) 3.51 MIL/uL (4.5-6.0); WHITE BLOOD COUNT (AUTO) 7.8 K/uL (4.3-11.0)
[2021-03-04 06:29] LABS: CALCIUM, SERUM 7.5 mg/dL (8.5-10.1); CREATININE 0.6 mg/dL (0.6-1.3); PHOSPHORUS 2.7 mg/dL (2.5-4.9); POTASSIUM 2.9 mmol/L (3.5-5.1)
[2021-03-04] MEDS: IV D5/ 0.9% NACL 1,000 ML IV PRN ×2 (06:30→21:43)
[2021-03-04 08:00] VITALS: BP 124/47
[2021-03-04] MEDS: PANTOPRAZOLE 40 MG/PACK PACK GT SCH (10:12)
[2021-03-04] MEDS: CALCIUM CARB 600MG /VIT D 1 EACH TABLET GT SCH (10:12)
[2021-03-04] MEDS: DOCUSATE SODIUM LIQ 100 MG/10 ML UDC GT SCH ×2 (10:12→20:48)
[2021-03-04] MEDS: MULTIVITAMINS,THERAGRAN 1 UDTAB TABLET GT SCH (10:12)
[2021-03-04] MEDS: ASPIRIN 81 MG TAB.CHEW GT SCH (10:12)
[2021-03-04] MEDS: LEVETIRACETAM SOL (5 ML) 100 MG/ML UDC GT SCH ×2 (10:12→20:48)
[2021-03-04] MEDS: LACTULOSE 10 G/15 ML UDC (PYXIS) PO SCH (10:12)
[2021-03-04] MEDS: METOPROLOL TARTRATE 25 MG TABLET GT SCH ×2 (10:22→17:59)
--- NOTE | 2021-03-04 10:22 | NUR ---
RN NOTE PER JUAN BEARD, SOMMER, OK TO GIVE METOPROLOL 12.5 MG TO PT WITH HR 48 AND BP 124/47 THE HR IS PT'S BASELINE
[2021-03-04] MEDS ORDERED: POTASSIUM CHLORIDE 20 MEQ TAB.PRT.SR PO ONE (11:00)
[2021-03-04] MEDS: POTASSIUM CL. PREMIX PERIPHER. 50 ML IV SCH ×2 (11:47→12:55)
[2021-03-04 12:00] VITALS: BP 126/49
--- NOTE | 2021-03-04 13:00 | NUR ---
RN NOTE PT STARTED ON GTF @ 20ML/HR PER ROVING INSPECTOR JUAN BEARD. WILL ASSESS PT'S TOLERANCE
[2021-03-04] MEDS: JEVITY 1.2 CAL 1,000 ML BOTTLE GT PRN (13:18)
[2021-03-04] MEDS ORDERED: LACT-209 GT (14:36)
[2021-03-04 16:00] VITALS: BP 132/59
--- NOTE | 2021-03-04 19:00 | NUR ---
RN CLOSING NOTE PT IN STABLE CONDITION, ON VENT SETTINGS ORDERED, NO SIGNS OF RESP DISTRESS OR SOB. ALL PT SAFETY PRECAUTIONS IN PLACE. WILL ENDORSE JOON TO ONCOMING RN
--- NOTE | 2021-03-04 19:40 | NUR ---
RN OPENING NOTES RECEIVED PT IN BED, ON MECHANICAL VENTILATOR TOLERATED SETTINGS WELL, NO SOB/RESP DISTRESS, TELE MONITOR SINUS JES HR 50S AT THIS TIME, [LT HAND #22 INFUSING D5NS @ 75ML/HR, TOLERATED WELL, JEVITY 1.2 INFUSING WELL AND PATIENT TOLERATED WELL, ALL PT SAFETY MEASURES IN PLACE, HOB ELEVATED, SIDE RAILS UP X2 BED LOCKED IN LOWEST POSITION WITH BED ALARM ON, WILL CONT TO MONITOR CLOSELY.
[2021-03-04 20:00] VITALS: BP_SYST 107; BP_SYST 121; BP_DIAS 56; BP_DIAS 83
[2021-03-04] MEDS: ENOXAPARIN SODIUM 40 MG/0.4 ML DISP.SYRIN SQ SCH (21:08)
[2021-03-05] VITALS (7 sets, daily range): BP systolic 90–136; BP diastolic 36–86
--- NOTE | 2021-03-05 06:54 | NUR ---
RN CLOSING NOTES PATIENT IN BED, ON MECHANICAL VENTILATOR TOLERATED SETTINGS WELL, NO SOB/RESP DISTRESS, TELE MONITOR SR HR 80S AT THIS TIME, JEVITY 1.2 INFUSING AT 50ML AT THIS TIME, TOLERATED WELL, DC PLANNING, ALL PT SAFETY MEASURES IN PLACE, HOB ELEVATED, SIDE RAILS UP X2 BED LOCKED IN LOWEST POSITION WITH BED ALARM ON, WILL ENDORSE CONTINUITY OF CARE TO ONCOMING NURSE.
--- NOTE | 2021-03-05 07:30 | NUR ---
RN OPENING NOTE PT OBTUNDED, OPENS EYES WITH NO TRACKING, TRACH ON VENT SETTINGS PER MD ORDER. PT ON TELE SINUS JES IN LOW 50s, ASYMPTOMATIC. PT HAS JEVITY 1.2 RUNNING AT 50ML/HR, AUSCULTATED FOR POSITIVE PLACEMENT, NO RESIDUALS, FLUSHED, PATENT. PT HAS RFA #22 INFUSING D5NS @ 75ML/HR. PT HAD FEVER OF 102 DURING VP STRATEGIC PARTNERSHIPS, WILL MONITOR. ALL PT SAFETY PRECAUTIONS IN PLACE, WILL CONT TO MONITOR
[2021-03-05] MEDS: LACTULOSE 10 G/15 ML UDC (PYXIS) PO SCH (09:42)
[2021-03-05] MEDS: DOCUSATE SODIUM LIQ 100 MG/10 ML UDC GT SCH ×2 (09:42→22:06)
[2021-03-05] MEDS: MULTIVITAMINS,THERAGRAN 1 UDTAB TABLET GT SCH (09:42)
[2021-03-05] MEDS: ASPIRIN 81 MG TAB.CHEW GT SCH (09:43)
[2021-03-05] MEDS: LEVETIRACETAM SOL (5 ML) 100 MG/ML UDC GT SCH ×2 (09:43→22:06)
[2021-03-05] MEDS: CALCIUM CARB 600MG /VIT D 1 EACH TABLET GT SCH (09:43)
[2021-03-05] MEDS: PANTOPRAZOLE 40 MG/PACK PACK GT SCH (09:43)
[2021-03-05] MEDS: METOPROLOL TARTRATE 25 MG TABLET GT SCH ×2 (10:46→18:29)
--- NOTE | 2021-03-05 11:00 | NUR ---
RN NOTE PT FEVER OF 102.2, COOLING MEASURES IN PLACE, INFORMED JUAN NOVOA NO TYLENOL ORDER, WILL ADMIN SOON ORDER IS PLACED. WILL F/U
[2021-03-05] MEDS: ACETAMINOPHEN 325 MG TABLET PO PRN ×2 (11:24→18:28)
--- NOTE | 2021-03-05 13:43 | NUR ---
colt called relayed procal level 11.83 storm made aware no new order.
[2021-03-05] MEDS: IV NS 0.9% 1,000 ML IV PRN (14:27)
[2021-03-05] MEDS ORDERED: VANCOMYCIN 0.75 GM in IV D5W 250 ML IV SCH (15:00)
[2021-03-05] MEDS ORDERED: VANCOMYCIN 1 GM in IV D5W 250 ML IV ONE (16:00)
[2021-03-05] MEDS ORDERED: PIPERACILLIN /TAZOBACTAM 3.375 G in IV D5W 50 ML IV SCH (18:00)
--- NOTE | 2021-03-05 19:00 | NUR ---
RN NOTE PT ON VENT SETTINGS, TOLERATING WELL SPO2 100%, NO S/S OR SOB OR RESP DISTRESS. PT TEMP OF 99.8 AT 1600, TYLENOL ADMINISTERED AND COOLING MEASURES STILL IN PLACE. IV ABX ORDERED AND WORKUP. ALL PT SAFETY PRECAUTIONS IN PLACE, WILL ENDORSE JOON TO ONCOMING RN
--- NOTE | 2021-03-05 19:43 | NUR ---
TELE-1/COW WASHER PT STRAIGHT CATH VIA STERILE PROCEDURE. SPECIMEN SENT FOR CULTURE. PT TOLERATED WELL.
[2021-03-05] MEDS ORDERED: ACETAMINOPHEN 650 MG/20.3 ML UDC GT PRN (21:00)
[2021-03-05] MEDS ORDERED: MEROPENEM 500 MG in IV NS 0.9% 50 ML IV SCH (21:00)
[2021-03-05 21:22] LABS: BILIRUBIN,URINE NEGATIVE (NEGATIVE); COLOR,URINE YELLOW (YELLOW); LEUKOCYTE ESTERASE ,URINE NEGATIVE (NEGATIVE); NITRITE, URINE NEGATIVE (NEGATIVE); PROTEIN,URINE TRACE mg/dl (NEGATIVE); UGLUCOSE NEGATIVE (NEGATIVE); UROBILINOGEN,URINE >=8.0 EU/dL (0.2)
[2021-03-05 21:27] LABS: BACTERIA,URINE Rare /HPF (None Seen); SQUAMOUS EPITHELIAL CELL,UR 0-2 /HPF (None Seen); URINE AMORPHOUS PHOSPHATES Moderate /HPF (None Seen); WBC,URINE 0-2 /HPF (0-3)
[2021-03-05 21:28] LABS: MUCUS,URINE Rare /LPF (None Seen)
[2021-03-05] MEDS: MEROPENEM 1 G in IV NS 0.9% 100 ML IV SCH (22:06)
[2021-03-05] MEDS: ENOXAPARIN SODIUM 40 MG/0.4 ML DISP.SYRIN SQ SCH (22:07)
[2021-03-06] VITALS: BP 114/60
[2021-03-06] MEDS: JEVITY 1.2 CAL 1,000 ML BOTTLE GT PRN (00:44)
--- NOTE | 2021-03-06 00:56 | NUR ---
TELE-1/HUMAN RESOURCES MANAGER MANUFACTURING HUNT CATH PLACED VIA STERILE PROCEDURE. PT TOLERATED WELL.
[2021-03-06 04:00] VITALS: BP 109/74
[2021-03-06] MEDS ORDERED: VANCOMYCIN 0.75 GM in IV D5W 250 ML IV SCH (04:00)
[2021-03-06] MEDS: MEROPENEM 1 G in IV NS 0.9% 100 ML IV SCH ×3 (05:21→20:07)
[2021-03-06] MEDS: IV NS 0.9% 1,000 ML IV PRN (06:08)
[2021-03-06 07:05] LABS: BASOPHILS % (AUTO) 0.3 % (0.0-2.0); HEMATOCRIT 37 % (39-51); HEMOGLOBIN 12.2 g/dL (13.5-17.5); LYMPHOCYTES # (AUTO) 0.8 /CMM (0.8-4.8); LYMPHOCYTES % (AUTO) 15.5 % (20.0-44.0); MEAN CORPUSCULAR HGB CONC 33 g/dl (31.0-36.0); MEAN CORPUSCULAR VOLUME 102 fL (80-96); MONOCYTES # (AUTO) 0.2 /CMM (0.1-1.30); MONOCYTES % (AUTO) 3.3 % (2.0-12.0); NEUTROPHILS % (AUTO) 78.9 % (43.0-81.0); PLATELET COUNT (AUTO) 91 /CMM (150-450); RED BLOOD CELL COUNT(AUTO) 3.66 MIL/uL (4.5-6.0); WHITE BLOOD COUNT (AUTO) 5.1 K/uL (4.3-11.0)
--- NOTE | 2021-03-06 07:30 | NUR ---
RN OPENING NOTES PATIENT PRESENT IN BED, OBTUNDED, ON MECH VENT, TOLERATING SETTINGS WELL, NO ACUTE DISTRESS NOTED, G-TUBE IN PLACE, INTACT, NO RESIDUAL NOTED, RUNNING FEEDING @50CC/HR, TOLERATING WELL, IV LINES INTACT AND FLUSHED, SAFETY MEASURES IN PLACE, BED LOCKED IN LOWEST POSITION, HOB ELEVATED, WILL CONT TO MONITOR
[2021-03-06 08:00] VITALS: BP 111/53
[2021-03-06 08:19] LABS: CALCIUM, SERUM 7.6 mg/dL (8.5-10.1); CREATININE 0.7 mg/dL (0.6-1.3); PHOSPHORUS 1.9 mg/dL (2.5-4.9); POTASSIUM 3.3 mmol/L (3.5-5.1)
--- NOTE | 2021-03-06 08:28 | NUR ---
CALLED TOMMY LANDRY [phone], PT NOT READY TO COME TO CT SCAN.
[2021-03-06] MEDS: MULTIVITAMINS,THERAGRAN 1 UDTAB TABLET GT SCH (09:31)
[2021-03-06] MEDS: METOPROLOL TARTRATE 25 MG TABLET GT SCH ×2 (09:31→16:58)
[2021-03-06] MEDS: ASPIRIN 81 MG TAB.CHEW GT SCH (09:31)
[2021-03-06] MEDS: PANTOPRAZOLE 40 MG/PACK PACK GT SCH (09:31)
[2021-03-06] MEDS: CALCIUM CARB 600MG /VIT D 1 EACH TABLET GT SCH (09:31)
[2021-03-06] MEDS: LACTULOSE 10 G/15 ML UDC (PYXIS) PO SCH (09:32)
[2021-03-06] MEDS: DOCUSATE SODIUM LIQ 100 MG/10 ML UDC GT SCH ×2 (09:32→20:07)
[2021-03-06] MEDS: LEVETIRACETAM SOL (5 ML) 100 MG/ML UDC GT SCH ×2 (09:32→20:07)
[2021-03-06] MEDS ORDERED: POTASSIUM CHLORIDE 20 MEQ POWDER PACKET GT SCH (10:00)
--- NOTE | 2021-03-06 10:03 | NUR ---
CALLED TOMMY BEACH @1000. RN IS STILL BUSY
[2021-03-06 10:29] LABS: BAND % (MANUAL) 3 % (0.0-5.0); EOSINOPHILS % (MANUAL) 1 % (0-4); LYMPHOCYTES % (MANUAL) 15 % (16-48); MONOCYTES % (MANUAL) 3 % (0-11.0); NEUTROPHILS % (MANUAL) 78 (42-76)
[2021-03-06] MEDS ORDERED: Sodium Phosphate 15 MMOL in IV NS 0.9% 245 ML IV SCH (11:00)
[2021-03-06 12:00] VITALS: BP 111/50
[2021-03-06 16:00] VITALS: BP 89/50
--- NOTE | 2021-03-06 19:40 | NUR ---
RN OPENING NOTES REC'D PT IN BED. RESTING. OBTUNDED. OPENS EYES. UNABLE TO FOLLOW COMMANDS. PT IS ON [facility]. PORTEX 7, AC 16, TV 500, FIO2 30% PEEP 5. TOLERATING SETTINGS WELL. PT SPO2 IS 100%. PT IS ON TELE MONITORING HEART RATE IS 58, PT BASELINE SINUS JES. IV SITE RIGHT FOREARM AND RIGHT HAND FLUSHED. PT HAS GTUBE, AUSCULTATED FOR PLACEMENT, RESIDUAL OF 0, FLUSHED. GT FEEDING JEVITY RUNNING AT 50ML/HR ORDERED. PT TOLERATING FEEDING WELL. PT HAS HUNT CATH DRAINING VIA GRAVITY. SAFETY MEASURES IN PLACE. HOB ELEVATED, SIDE RAILS UP X3, BED LOCKED IN LOWEST POSITION WITH BED ALARM ON. PT UNABLE TO USE CALL LIGHT. WILL CONT TO MONITOR FREQUENT ROUNDS FOR CHANGE OF CONDITION.
--- NOTE | 2021-03-06 19:43 | NUR ---
PATIENT IS STABLE NO ACUTE CHANGES REPORT GIVEN TO PM SHIFT RN
[2021-03-06 20:00] VITALS: BP 110/75
[2021-03-06] MEDS: DOXYCYCLINE 100 MG in IV D5W 100 ML IV SCH (20:48)
--- NOTE | 2021-03-06 22:50 | NUR ---
RN NOTE PT RESTING. NO S/S OF PAIN. PT TURNED AND REPOSITIONED.
[2021-03-07] VITALS: BP 115/54
[2021-03-07] MEDS: IV NS 0.9% 1,000 ML IV PRN (01:19)
[2021-03-07] MEDS: JEVITY 1.2 CAL 1,000 ML BOTTLE GT PRN (01:23)
--- NOTE | 2021-03-07 03:40 | NUR ---
RN NOTE PT BED BATH DONE, PT HAD ONE SMALL BM. SOFT FORMED BROWN. PT SUCTIONED ORALLY /VIA TRACH SMALL THIN SECRETIONS NOTED. ORAL CARE DONE.
[2021-03-07 04:00] VITALS: BP 126/50
[2021-03-07] MEDS: MEROPENEM 1 G in IV NS 0.9% 100 ML IV SCH ×2 (04:58→12:47)
[2021-03-07 05:58] LABS: BASOPHILS % (AUTO) 0.8 % (0.0-2.0); EOSINOPHILS % (AUTO) 5.8 % (0.0-6.0); HEMATOCRIT 32 % (39-51); HEMOGLOBIN 11.1 g/dL (13.5-17.5); LYMPHOCYTES # (AUTO) 1.3 /CMM (0.8-4.8); LYMPHOCYTES % (AUTO) 21.1 % (20.0-44.0); MEAN CORPUSCULAR HGB CONC 34 g/dl (31.0-36.0); MEAN CORPUSCULAR VOLUME 99 fL (80-96); MONOCYTES # (AUTO) 0.4 /CMM (0.1-1.30); MONOCYTES % (AUTO) 6.2 % (2.0-12.0); NEUTROPHILS # (AUTO) 4.1 /CMM (1.8-8.9); NEUTROPHILS % (AUTO) 66.1 % (43.0-81.0); PLATELET COUNT (AUTO) 92 /CMM (150-450); RED BLOOD CELL COUNT(AUTO) 3.28 MIL/uL (4.5-6.0); WHITE BLOOD COUNT (AUTO) 6.3 K/uL (4.3-11.0)
[2021-03-07 06:32] LABS: CALCIUM, SERUM 7.1 mg/dL (8.5-10.1); CREATININE 0.6 mg/dL (0.6-1.3); MAGNESIUM 1.8 mg/dL (1.8-2.4); PHOSPHORUS 1.8 mg/dL (2.5-4.9); POTASSIUM 3.1 mmol/L (3.5-5.1)
--- NOTE | 2021-03-07 06:45 | NUR ---
RN CLOSING NOTE PT IS RESTING IN BED, TOLERATED HYGIENE/PATIENT CARE AND TURN AND REPOSITION. NO SIGNIFICANT CHANGES OVER NIGHT. STILL ON SAME VENT SETTINGS. PORTEX 7 AC 16 TV 500 FIO2 30% PEEP 5. O2 SAT 100% AT THIS TIME. NO RESP DISTRESS OR SOB NOTED. BREATHING EVEN AND UNLABORED. PT SINUS RHYTHM HEART RATE 61 AT THIS TIME. PT SAFETY MEASURES IN PLACE HOB ELEVATED/ SIDE RAILS UP X2 BED LOCKED IN LOWEST POSITION WITH BED ALARM ON. WILL ENDORSE TO AM SHIFT FOR CONTINUATION OF CARE. Addendum: 03/07/21 at 0648 by JESÚS FIERRO RN PT STILL WITH GTUBE FEEDING RUNNING AT 50ML/HR
--- NOTE | 2021-03-07 07:55 | NUR ---
RN OPENING NOTE PATIENT IS IN BED WITH HOB AT SEMI FOWLERS POSITION. PATIENT IS ON TRACH/VENT WITH NO SIGNS OF LABORED. PATIENT IS OBTUNDED. HUNT IS IN PLACE. GTUBE IS IN PLACE WITH APPROPRIATE FEEDING. RHAND #20 AND RFA #[id number] ARE PATENT AND INTACT. BED IS LOCKED IN THE LOWEST POSITION, 3 GUARD RAILS RAISED, AND ALL HOSPITAL SAFETY PRECAUTIONS ARE BEING FOLLOWED. WILL CONTINUE TO MONITOR THROUGHOUT SHIFT.
[2021-03-07 08:00] VITALS: BP 112/56
[2021-03-07] MEDS: PANTOPRAZOLE 40 MG/PACK PACK GT SCH (08:47)
[2021-03-07] MEDS: LACTULOSE 10 G/15 ML UDC (PYXIS) PO SCH (08:47)
[2021-03-07] MEDS: MULTIVITAMINS,THERAGRAN 1 UDTAB TABLET GT SCH (08:47)
[2021-03-07] MEDS: LEVETIRACETAM SOL (5 ML) 100 MG/ML UDC GT SCH (08:47)
[2021-03-07] MEDS: DOCUSATE SODIUM LIQ 100 MG/10 ML UDC GT SCH (08:47)
[2021-03-07] MEDS: ASPIRIN 81 MG TAB.CHEW GT SCH (08:47)
[2021-03-07] MEDS: CALCIUM CARB 600MG /VIT D 1 EACH TABLET GT SCH (08:47)
[2021-03-07] MEDS: DOXYCYCLINE 100 MG in IV D5W 100 ML IV SCH (08:48)
[2021-03-07] MEDS: METOPROLOL TARTRATE 25 MG TABLET GT SCH ×3 (08:53→16:48)
--- NOTE | 2021-03-07 09:06 | NUR ---
WOUND CARE CONSULT: PT PRESENTS WITH CONTRACTED EXTREMITIES. PT IS IMMOBILE WITH CURRENT [place] SCORE OF 9. RECOMMENDATIONS MADE FOR SKIN PROTECTION. DISCUSSED WITH NURSING STAFF. FIRST STEP LOW AIRLOSS MATTRESS IS ON ORDER. MD IN AGREEMENT WITH PLAN OF CARE.
[2021-03-07] MEDS: POTASSIUM CHLORIDE 20 MEQ POWDER PACKET GT SCH ×2 (10:29→11:34)
[2021-03-07] MEDS ORDERED: K PHOS NEUTRAL 250 MG TABLET GT ONE (11:00)
[2021-03-07] MEDS ORDERED: K PHOS NEUTRAL 250 MG TABLET PO ONE (11:00)
[2021-03-07] MEDS ORDERED: NEUTRA PHOS 1 POWD.PACKET GT ONE (11:00)
[2021-03-07 12:00] VITALS: BP 144/74
[2021-03-07] MEDS ORDERED: MERO1VIA23 IV (13:46)
--- NOTE | 2021-03-07 15:33 | NUR ---
RN NOTE REPORT GIVEN TO TOMMY BELLAMY AT [facility]. AWAITING PICKUP.
[2021-03-07 16:00] VITALS: BP 107/54
[2021-03-07 16:48] VITALS: BP 110/66
--- NOTE | 2021-03-07 16:49 | NUR ---
RN NOTE METROPOLOL HELD DUE TO HR 62 AND BP 110/66.
--- NOTE | 2021-03-07 17:34 | NUR ---
RN NOTE PATIENT DISCHARGED IN STABLE CONDITION.
== END 2021-03-07 17:30 | DRG 254 ==
LOC: ER 11:54 → TELE1 18:26
PROVIDERS: ADMIT Nurse Practitioner Acute Care; ATTEND Registered Nurse
PROC: 5A1955Z Respiratory Ventilation, Greater than 96 Consecutive Hours (ICD-10-PCS; principal; 2021-03-01)
PROC: 0DH63UZ Insertion of Feeding Device into Stomach, Percutaneous Approach (ICD-10-PCS; 2021-03-03)
DX: Z43.1 Encounter for attention to gastrostomy (principal); Z99.11 Dependence on respirator [ventilator] status; G93.49 Other encephalopathy; J96.10 Chronic respiratory failure, unspecified whether with hypoxia or hypercapnia; R53.2 Functional quadriplegia; Z93.0 Tracheostomy status; D69.59 Other secondary thrombocytopenia; R13.10 Dysphagia, unspecified; E44.1 Mild protein-calorie malnutrition; G40.909 Epilepsy, unspecified, not intractable, without status epilepticus; I10 Essential (primary) hypertension; Z86.73 Personal history of transient ischemic attack (TIA), and cerebral infarction without residual deficits; E87.6 Hypokalemia; E88.09 Other disorders of plasma-protein metabolism, not elsewhere classified; J98.11 Atelectasis; Z68.20 Body mass index [BMI] 20.0-20.9, adult; Z79.82 Long term (current) use of aspirin; Z20.822 Contact with and (suspected) exposure to COVID-19
CPT/HCPCS: 31720; 36415; 43246; 71045-TC; 80048-TC; 80061-TC; 80076-TC; 81001; 83605-TC; 83690-TC; 83735-TC; 84100-TC; 84484-TC; 85025-TC; 87040-TC; 87070-TC; 87081-TC; 87086-TC; 87186-TC; 94002-TC; 94003-TC; 94760-TC; 94762-TC; 94799-TC; 99082-TC; A4623; A9563; G0378; J1650; J1953; J2185; J2250; J2543; J2704; J3370; J3480; J3490; J7030; J7042; J7050; J7060; U0003

== ENCOUNTER 2023-10-01 13:35 | Inpatient (IN) | payer MEDICAID ==
[2023-10-01] VITALS: BP 158/85; TEMP 98.5; O2SAT 100
[~2023-10-01] VITALS: Ht 157.5 cm; Wt 62.4 kg
[~2023-10-01 13:35] MED LIST changes: +ACET325T53 GT; -CEFA1VIA19 IJ; +CHOL100034 GT; -FERR220S2 GT; -FOLI1TAB16 PO; +LACT10SO3 GT; -MAG30ORA GT; +MERO1VIA23 IV; +NUTR250L50 GT; +OMEP20TA5 GT; +QUERCETIN GT
[2023-10-01] MEDS ORDERED: KETO120S5 TP (13:56)
[2023-10-01] MEDS ORDERED: CHLO473M5 MM (13:56)
[2023-10-01] MEDS ORDERED: CLOB15OI3 TP (13:56)
[2023-10-01] MEDS ORDERED: HEPA50007 SQ (13:56)
[2023-10-01] MEDS ORDERED: POLY17PO4 GT (13:56)
[2023-10-01] MEDS ORDERED: AMLO-212 GT (13:56)
[2023-10-01] MEDS ORDERED: IPRA4AER IH ×2 (13:56)
[2023-10-01] MEDS ORDERED: CALC60OI4 TP (13:56)
[2023-10-01] MEDS ORDERED: VANC750V IV (13:57)
[2023-10-01 14:20] LABS: BASOPHILS # (AUTO) 0.1 K/uL (0.0-0.2); BASOPHILS % (AUTO) 0.8 % (0.0-2.0); EOSINOPHILS # (AUTO) 7.1 K/uL (0.0-0.7); HEMATOCRIT 40 % (39-51); HEMOGLOBIN 13.4 g/dL (13.5-17.5); LYMPHOCYTES # (AUTO) 4.1 K/uL (0.8-4.8); LYMPHOCYTES % (AUTO) 22.7 % (20.0-44.0); MEAN CORPUSCULAR HEMOGLOBIN 32 PG (26.0-33.0); MEAN CORPUSCULAR HGB CONC 33 g/dl (31.0-36.0); MEAN CORPUSCULAR VOLUME 95 fL (80-96); MONOCYTES # (AUTO) 0.7 K/uL (0.1-1.30); MONOCYTES % (AUTO) 3.7 % (2.0-12.0); NEUTROPHILS % (AUTO) 33.3 % (43.0-81.0); PLATELET COUNT (AUTO) 434 K/uL (150-450); RED BLOOD CELL COUNT(AUTO) 4.24 MIL/uL (4.5-6.0); RED CELL DISTRIBUTION WIDTH 14.2 % (11.5-15.0); WHITE BLOOD COUNT (AUTO) 18.1 K/uL (4.3-11.0)
[2023-10-01 14:29] LABS: CALCIUM, SERUM 9.7 mg/dL (8.5-10.1); CARBON DIOXIDE 26 mmol/L (21-32); CHLORIDE 104 mmol/L (98-107); CREATININE 0.8 mg/dL (0.6-1.3); GLUCOSE 112 mg/dL (74-106); POTASSIUM 4.8 mmol/L (3.5-5.1); SODIUM SERUM 140 mmol/L (136-145); UREA NITROGEN, BLOOD 25 mg/dL (7-18)
[2023-10-01 14:35] LABS: INR 1.14 (0.91-1.10); PARTIAL THROMBOPLASTIN TIME 30.4 SEC (24.3-34.3)
[2023-10-01 14:36] LABS: ALANINE AMINOTRANSFERASE 45 U/L (12-78); ALKALINE PHOSPHATASE 211 U/L (46-116); ASPARTATE AMINOTRANSFERASE 23 U/L (15-37); BILIRUBIN,TOTAL 0.3 mg/dL (0.2-1.0); TOTAL PROTEIN, SERUM 9.5 g/dL (6.4-8.2)
[2023-10-01 14:39] LABS: BILIRUBIN,DIRECT < 0.1 mg/dL (0.0-0.2)
[2023-10-01 14:47] LABS: EOSINOPHILS % (AUTO) 39.5 % (0.0-6.0)
[2023-10-01 15:26] LABS: APPEARANCE,URINE CLEAR (CLEAR); BILIRUBIN,URINE NEGATIVE (NEGATIVE); BLOOD, URINE NEGATIVE Ery/uL (NEGATIVE); COLOR,URINE YELLOW (YELLOW); KETONES,URINE NEGATIVE (NEGATIVE); LEUKOCYTE ESTERASE ,URINE NEGATIVE (NEGATIVE); NITRITE, URINE NEGATIVE (NEGATIVE); PH,URINE 5.5 (5.0-8.0); PROTEIN,URINE NEGATIVE (NEGATIVE); UGLUCOSE NEGATIVE (NEGATIVE); UROBILINOGEN,URINE 0.2 EU/dL (0.2)
[2023-10-01] MEDS ORDERED: MEROPENEM 1,000 MG in IV NS 0.9% 100 ML IV ONE (16:30)
[2023-10-01] MEDS ORDERED: ACETAMINOPHEN 325 MG TABLET PO PRN ×2 (17:30)
[2023-10-01] MEDS ORDERED: Medication Not On Formulary EA (Ipratropium/Albuterol Sulfate (Combivent Respimat 20-100 IH PRN (17:30)
[2023-10-01] MEDS ORDERED: ZOLPIDEM TARTRATE 5 MG TABLET PO PRN (17:30)
[2023-10-01] MEDS ORDERED: ALBUTEROL FS 2.5 MG/0.5 ML VIAL.NEB NEB PRN (17:30)
[2023-10-01] MEDS ORDERED: ONDANSETRON HCL/PF 4 MG/2 ML VIAL IVP PRN (17:30)
[2023-10-01] MEDS ORDERED: ACETAMINOPHEN ES 500 MG TABLET GT PRN (17:30)
[2023-10-01] MEDS ORDERED: Z GUARD REMEDY 4 OZ OINT TP PRN (17:30)
[2023-10-01] MEDS ORDERED: BISACODYL SUPP (10 MG) 10 MG/SUPP.RECT SUPP.RECT RC PRN (17:30)
[2023-10-01] MEDS ORDERED: MAG HYDROX/AL HYDROX/SIMETH 30 ML UDC PO PRN (17:30)
[2023-10-01] MEDS ORDERED: IPRATROPIUM NEB FS 0.5 MG/2.5 ML AMPUL.NEB NEB PRN (17:30)
[2023-10-01] MEDS ORDERED: MAGNESIUM HYDROXIDE 30 ML UDC PO PRN (17:30)
[2023-10-01] MEDS: IV NS 0.9% 1,000 ML IV PRN (17:51)
[2023-10-01 18:00] LABS: EOSINOPHILS % (MANUAL) 30 % (0-4); LYMPHOCYTES % (MANUAL) 20 % (16-48); MONOCYTES % (MANUAL) 2 % (0-11.0); NEUTROPHILS % (MANUAL) 48 (42-76)
[2023-10-01 18:01] LABS: ANISOCYTOSIS 1+; PLATELET ESTIMATE ADEQUATE
[2023-10-01 20:00] VITALS: BP 147/73; TEMP 96.9; O2SAT 100
[2023-10-01] MEDS ORDERED: MEROPENEM 500 MG in IV NS 0.9% 50 ML IV SCH (21:00)
[2023-10-01] MEDS: MEROPENEM 1 G in IV NS 0.9% 100 ML IV SCH (21:28)
[2023-10-01] MEDS: CLOBETASOL 0.05% OINT 30 GM TUBE TP SCH (21:28)
[2023-10-01] MEDS: BACLOFEN (10 MG) 10 MG TABLET GT SCH (21:28)
[2023-10-01] MEDS: LEVETIRACETAM (250 MG) 250 MG TABLET PO SCH (21:29)
[2023-10-01] MEDS: HEPARIN SODIUM, PORCINE 5000 UNITS/1 ML VIAL SQ SCH (21:32)
[2023-10-02] VITALS: BP 158/85; TEMP 98.5; O2SAT 100
[2023-10-02 04:00] VITALS: BP 152/89; TEMP 97.9; O2SAT 100
[2023-10-02] MEDS: BACLOFEN (10 MG) 10 MG TABLET GT SCH ×3 (04:07→21:48)
[2023-10-02] MEDS: MEROPENEM 1 G in IV NS 0.9% 100 ML IV SCH ×3 (04:07→21:47)
[2023-10-02 07:10] LABS: BASOPHILS # (AUTO) 0.1 K/uL (0.0-0.2); BASOPHILS % (AUTO) 0.6 % (0.0-2.0); HEMATOCRIT 36 % (39-51); LYMPHOCYTES # (AUTO) 2.9 K/uL (0.8-4.8); LYMPHOCYTES % (AUTO) 18.3 % (20.0-44.0); MEAN CORPUSCULAR HEMOGLOBIN 32 PG (26.0-33.0); MEAN CORPUSCULAR HGB CONC 33 g/dl (31.0-36.0); MEAN CORPUSCULAR VOLUME 96 fL (80-96); MONOCYTES # (AUTO) 0.7 K/uL (0.1-1.30); MONOCYTES % (AUTO) 4.5 % (2.0-12.0); NEUTROPHILS % (AUTO) 38.1 % (43.0-81.0); PLATELET COUNT (AUTO) 335 K/uL (150-450); RED BLOOD CELL COUNT(AUTO) 3.79 MIL/uL (4.5-6.0); RED CELL DISTRIBUTION WIDTH 14.2 % (11.5-15.0); WHITE BLOOD COUNT (AUTO) 15.7 K/uL (4.3-11.0)
[2023-10-02 07:13] LABS: EOSINOPHILS % (AUTO) 38.5 % (0.0-6.0)
[2023-10-02 07:34] LABS: ALBUMIN 2.5 g/dL (3.4-5.0); BILIRUBIN,TOTAL 0.3 mg/dL (0.2-1.0); CALCIUM, SERUM 8.7 mg/dL (8.5-10.1); CREATININE 0.7 mg/dL (0.6-1.3); MAGNESIUM 2.2 mg/dL (1.8-2.4); PHOSPHORUS 2.6 mg/dL (2.5-4.9); POTASSIUM 3.9 mmol/L (3.5-5.1); TOTAL PROTEIN, SERUM 7.9 g/dL (6.4-8.2)
[2023-10-02 08:00] VITALS: BP 164/84; TEMP 98.4; O2SAT 100
[2023-10-02] MEDS: CHLORHEXIDINE GLUCONATE 15 ML UDC MM SCH ×2 (08:46→16:47)
[2023-10-02] MEDS: ASPIRIN 81 MG TAB.CHEW GT SCH (08:47)
[2023-10-02] MEDS: DOCUSATE SODIUM LIQ 100 MG/10 ML UDC GT SCH ×2 (08:47→16:47)
[2023-10-02] MEDS: AMLODIPINE BESYLATE 5 MG TABLET GT SCH (08:47)
[2023-10-02] MEDS: LEVETIRACETAM (250 MG) 250 MG TABLET PO SCH (08:48)
[2023-10-02] MEDS: CALCIUM CARB 600MG /VIT D 1 EACH TABLET GT SCH (08:48)
[2023-10-02] MEDS: HEPARIN SODIUM, PORCINE 5000 UNITS/1 ML VIAL SQ SCH ×2 (08:49→21:50)
[2023-10-02] MEDS: CLOBETASOL 0.05% OINT 30 GM TUBE TP SCH ×2 (08:50→21:47)
[2023-10-02 10:12] LABS: BAND % (MANUAL) 1 % (0.0-5.0); EOSINOPHILS % (MANUAL) 41 % (0-4); LYMPHOCYTES % (MANUAL) 20 % (16-48); MONOCYTES % (MANUAL) 1 % (0-11.0); NEUTROPHILS % (MANUAL) 37 (42-76); PLATELET ESTIMATE ADEQUATE
[2023-10-02 10:13] LABS: ANISOCYTOSIS 1+
[2023-10-02] MEDS ORDERED: MAG HYDROX/AL HYDROX/SIMETH 30 ML UDC GT PRN (11:58)
[2023-10-02] MEDS ORDERED: ZOLPIDEM TARTRATE 5 MG TABLET GT PRN (11:58)
[2023-10-02 12:00] VITALS: BP 140/82; TEMP 97.9; O2SAT 100
[2023-10-02] MEDS ORDERED: JEVITY 1.2 CAL 1,000 ML BOTTLE GT PRN (12:00)
[2023-10-02] MEDS ORDERED: ACETAMINOPHEN 650 MG/20.3 ML UDC GT PRN (12:00)
[2023-10-02] MEDS ORDERED: MAGNESIUM HYDROXIDE 30 ML UDC GT PRN (12:42)
[2023-10-02] MEDS: JEVITY 1.2 CAL 1,000 ML BOTTLE GT SCH (13:40)
[2023-10-02 16:00] VITALS: BP 118/89; TEMP 98.2; O2SAT 100
[2023-10-02 20:00] VITALS: BP 146/86; TEMP 98.5; O2SAT 100
[2023-10-02] MEDS: IV NS 0.9% 1,000 ML IV PRN (21:46)
[2023-10-02] MEDS: LEVETIRACETAM SOL (5 ML) 100 MG/ML UDC GT SCH (21:48)
[2023-10-03] VITALS: BP 131/69; TEMP 98.2; O2SAT 95
[2023-10-03 04:00] VITALS: BP 138/72; TEMP 98.3; O2SAT 98
[2023-10-03] MEDS: BACLOFEN (10 MG) 10 MG TABLET GT SCH ×3 (04:19→21:31)
[2023-10-03] MEDS: MEROPENEM 1 G in IV NS 0.9% 100 ML IV SCH ×3 (04:19→21:33)
[2023-10-03 08:00] VITALS: BP 130/72; TEMP 98; O2SAT 98
[2023-10-03] MEDS: CHLORHEXIDINE GLUCONATE 15 ML UDC MM SCH ×2 (08:45→17:08)
[2023-10-03] MEDS: CALCIUM CARB 600MG /VIT D 1 EACH TABLET GT SCH (08:45)
[2023-10-03] MEDS: LEVETIRACETAM SOL (5 ML) 100 MG/ML UDC GT SCH ×2 (08:45→21:31)
[2023-10-03] MEDS: ASPIRIN 81 MG TAB.CHEW GT SCH (08:45)
[2023-10-03] MEDS: DOCUSATE SODIUM LIQ 100 MG/10 ML UDC GT SCH ×2 (08:45→17:08)
[2023-10-03] MEDS: AMLODIPINE BESYLATE 5 MG TABLET GT SCH (08:46)
[2023-10-03] MEDS: HEPARIN SODIUM, PORCINE 5000 UNITS/1 ML VIAL SQ SCH ×2 (08:48→21:32)
[2023-10-03] MEDS: CLOBETASOL 0.05% OINT 30 GM TUBE TP SCH ×2 (09:06→22:25)
[2023-10-03] MEDS: JEVITY 1.2 CAL 1,000 ML BOTTLE GT SCH (11:24)
[2023-10-03 13:05] VITALS: BP 123/63; TEMP 98; O2SAT 98
[2023-10-03 16:19] VITALS: BP 127/73; TEMP 98.1; O2SAT 98
[2023-10-03] MEDS: IV NS 0.9% 1,000 ML IV PRN (18:16)
[2023-10-03 20:00] VITALS: BP 157/91; TEMP 98.6; O2SAT 100
[2023-10-04] VITALS: BP 156/70; TEMP 97.9; O2SAT 100
[2023-10-04 04:00] VITALS: BP 149/67; TEMP 98.4; O2SAT 100
[2023-10-04] MEDS: MEROPENEM 1 G in IV NS 0.9% 100 ML IV SCH ×2 (04:57→12:39)
[2023-10-04] MEDS: BACLOFEN (10 MG) 10 MG TABLET GT SCH ×2 (04:57→12:39)
[2023-10-04] MEDS: IV NS 0.9% 1,000 ML IV PRN (06:30)
[2023-10-04] MEDS: JEVITY 1.2 CAL 1,000 ML BOTTLE GT SCH (06:57)
[2023-10-04 08:00] VITALS: BP 157/94; TEMP 98.6; O2SAT 100
[2023-10-04] MEDS: ASPIRIN 81 MG TAB.CHEW GT SCH (09:36)
[2023-10-04] MEDS: DOCUSATE SODIUM LIQ 100 MG/10 ML UDC GT SCH (09:37)
[2023-10-04] MEDS: AMLODIPINE BESYLATE 5 MG TABLET GT SCH (09:37)
[2023-10-04] MEDS: CHLORHEXIDINE GLUCONATE 15 ML UDC MM SCH (09:37)
[2023-10-04] MEDS: LEVETIRACETAM SOL (5 ML) 100 MG/ML UDC GT SCH (09:37)
[2023-10-04] MEDS: CALCIUM CARB 600MG /VIT D 1 EACH TABLET GT SCH (09:37)
[2023-10-04] MEDS: HEPARIN SODIUM, PORCINE 5000 UNITS/1 ML VIAL SQ SCH (09:42)
[2023-10-04] MEDS: CLOBETASOL 0.05% OINT 30 GM TUBE TP SCH (09:49)
[2023-10-04 12:00] VITALS: BP 171/82; TEMP 98.6; O2SAT 100
[2023-10-04] MEDS ORDERED: AMLODIPINE BESYLATE 5 MG TABLET GT ONE (12:30)
[2023-10-04 12:39] VITALS: BP 171/82
== END 2023-10-04 16:56 | DRG 720 ==
LOC: ER 13:48 → TELE-TD 17:09 → TELE1 18:40
PROVIDERS: ADMIT Internal Medicine; ATTEND Internal Medicine
PROC: 5A1945Z Respiratory Ventilation, 24-96 Consecutive Hours (ICD-10-PCS; principal; 2023-10-01)
PROC: 05H633Z Insertion of Infusion Device into Left Subclavian Vein, Percutaneous Approach (ICD-10-PCS; 2023-10-03)
PROC: B547ZZA Ultrasonography of Left Subclavian Vein, Guidance (ICD-10-PCS; 2023-10-03)
DX: A41.54 Sepsis due to Acinetobacter baumannii (principal); J69.0 Pneumonitis due to inhalation of food and vomit; G93.1 Anoxic brain damage, not elsewhere classified; J96.11 Chronic respiratory failure with hypoxia; R53.2 Functional quadriplegia; D63.8 Anemia in other chronic diseases classified elsewhere; G40.909 Epilepsy, unspecified, not intractable, without status epilepticus; I10 Essential (primary) hypertension; R13.10 Dysphagia, unspecified; Z79.82 Long term (current) use of aspirin; Z86.73 Personal history of transient ischemic attack (TIA), and cerebral infarction without residual deficits; Z99.11 Dependence on respirator [ventilator] status; Z93.1 Gastrostomy status; Z20.822 Contact with and (suspected) exposure to COVID-19
CPT/HCPCS: 31720; 36415; 71045-TC; 80048-TC; 80053-TC; 80061-TC; 80076-TC; 83605-TC; 83735-TC; 84100-TC; 84484-TC; 85025-TC; 85730-TC; 87040-TC; 87086-TC; 94003-TC; 94760-TC; 94762-TC; 94799-TC; A4223; A4623; A6403; C9803; G0378; J1644; J1953; J2185; J7030; J7040